=== PATIENT | female | born 1955 | race Caucasian/White ===

== ENCOUNTER → 2017-08-11 | Day surgery (SDC) | payer OTHER ==
[~2017-08-11] MED LIST: FENTANYL CITRATE/PF 100MCG/2 ML INJ ONE; LEVOTHYROXINE88 MCG PO; LIDOCAINE HCL 2% LOCAL INJ 5 ML SDV VIAL INJ ONE; MELOXICAM7.5 MG PO; MIDAZOLAM HCL 2 MG/2 ML VIAL ONE; PANTOPRAZOLE SO40 MG PO; PAROXETINE HCL20 MG PO; PROPOFOL IV EMULSION 10 MG/ML 50 ML VIAL ONE
--- NOTE | 2017-08-11 17:20 | Operative Report ---
DATE OF PROCEDURE: August 11, 2017 REFERRING PHYSICIAN: Dr. Gerardo Pugh. PROCEDURE PERFORMED: Esophagogastroduodenoscopy with biopsies. INDICATIONS FOR ESOPHAGOGASTRODUODENOSCOPY: Abdominal distention, worse postprandially. MEDICATION: Patient was done under MAC. Please see anesthesiologist's note. PROCEDURE: With the patient in the left lateral decubitus position, the flexible fiberoptic Olympus gastroscope was introduced into the esophagus under direct visualization without any difficulty. There was some patchy erythema noted in the distal esophagus. A minute tongue of velvety red mucosa was noted to extend proximally from the GE junction, and that was biopsied to rule out Yancey's. The scope was then advanced with ease into the stomach, traversing a small hiatal hernia. Mucosa overlying the antrum and the body revealed some patchy erythema and low-grade edema, and biopsies were obtained and sent to stain for H. pylori. The pylorus was of normal contour and shape, was intubated with ease, and the scope was advanced all the way to the 2nd portion of the duodenum. Biopsies were obtained from the proximal 2nd portion to rule out sprue considering patient's history of diarrhea. The mucosa overlying the duodenal bulb appeared to be within normal limits. The scope was then withdrawn back into the stomach and retroflexed, and the mucosa overlying the fundus appeared to be within normal limits. A somewhat loose Senia fundoplication was noted. The scope was then straightened out. The stomach was decompressed. The scope was subsequently withdrawn. Patient tolerated the procedure well. IMPRESSION: 1. Mild distal esophagitis. 2. Rule out Yancey's esophagus. 3. Small hiatal hernia. 4. Status post Senia fundoplication. 5. Gastritis biopsied. Biopsies sent to stain for H. pylori. 6. Rule out sprue. PLAN: Follow up histology. Initiate Protonix 40 mg 1 p.o. q.a.m. a.c. and Carafate 1 gram p.o. a.c. t.i.d. nightly. Job#: [id number] EV cc:GERARDO PUGH, DO
== END | disposition home or self-care (01) ==
LOC: OR 12:27
PROVIDERS: ATTEND Internal Medicine Gastroenterology
DX: K29.70 Gastritis, unspecified, without bleeding (principal); K20.9 Esophagitis, unspecified; K44.9 Diaphragmatic hernia without obstruction or gangrene; K21.9 Gastro-esophageal reflux disease without esophagitis; Z98.890 Other specified postprocedural states; R19.7 Diarrhea, unspecified; R05 Cough; E03.9 Hypothyroidism, unspecified; F32.9 Major depressive disorder, single episode, unspecified; Z88.0 Allergy status to penicillin; F17.210 Nicotine dependence, cigarettes, uncomplicated; Z01.810 Encounter for preprocedural cardiovascular examination; Z68.27 Body mass index [BMI] 27.0-27.9, adult
CPT/HCPCS: 43239; 93005; J2001; J2250

== ENCOUNTER 2018-06-13 12:09 | Emergency (ER) | payer OTHER ==
[~2018-06-13] VITALS: Ht 167.6 cm; Wt 71.7 kg
[~2018-06-13 12:09] MED LIST changes: -FENTANYL CITRATE/PF 100MCG/2 ML INJ ONE; -LIDOCAINE HCL 2% LOCAL INJ 5 ML SDV VIAL INJ ONE; -MIDAZOLAM HCL 2 MG/2 ML VIAL ONE; -PROPOFOL IV EMULSION 10 MG/ML 50 ML VIAL ONE
[2018-06-13 12:57] LABS: BASOPHILS # (AUTO) 0.1 (0.0-0.1); BASOPHILS % 0.7 % (0.0-1.0); EOSINOPHILS # (AUTO) 0.1 (0.0-0.4); EOSINOPHILS % 1.6 % (0.0-6.0); HEMATOCRIT 41.4 % (34.2-44.1); HEMOGLOBIN 13.4 g/dL (12.0-16.0); LYMPHOCYTES # (AUTO) 2.2 (1.0-3.2); LYMPHOCYTES % 29.2 % (18.0-39.1); MEAN CORPUSCULAR HEMOGLOBIN 28.6 pg (28-32); MEAN CORPUSCULAR HGB CONC 32.4 g/dL (31-35); MEAN CORPUSCULAR VOLUME 88.5 fL (81-99); MONOCYTES # (AUTO) 0.6 (0.2-0.8); MONOCYTES % 7.8 % (4.4-11.3); NEUTROPHILS # (AUTO) 4.5 (2.1-6.9); NEUTROPHILS % 60.4 % (38.7-80.0); PLATELET COUNT 340 x10e3/uL (140-360); RED BLOOD COUNT 4.68 x10e6/uL (3.6-5.1); RED CELL DISTRIBUTION WIDTH 13.7 % (11.7-14.4)
[2018-06-13 13:07] LABS: INR 0.82; PARTIAL THROMBOPLASTIN TIME 25.9 seconds (23.8-35.5); PROTHROMBIN TIME 11.8 seconds (11.9-14.5)
[2018-06-13 13:09] LABS: BILIRUBIN,URINE NEGATIVE (NEGATIVE); CLARITY,URINE CLEAR (CLEAR); COLOR,URINE YELLOW (YELLOW); KETONES,URINE NEGATIVE (NEGATIVE); LEUKOCYTE ESTERASE ,URINE NEGATIVE (NEGATIVE); NITRITE,URINE NEGATIVE (NEGATIVE); PROTEIN,URINE DIPSTICK NEGATIVE (NEGATIVE); URINE UROBILINOGEN 0.2 mg/dL (0.2 - 1)
[2018-06-13 13:17] LABS: BACTERIA,URINE RARE /HPF; EPITHELIAL CELLS,URINE RARE /LPF
[2018-06-13 13:17] LABS: ALBUMIN 3.4 g/dL (3.5-5.0); ALBUMIN/GLOBULIN RATIO 0.9 (0.8-2.0); ANION GAP 12.2 mmol/L (8-16); CALCIUM 9.2 mg/dL (8.4-10.2); CREATININE, SERUM 0.94 mg/dL (0.57-1.11); MAGNESIUM 2.1 MG/DL (1.3-2.1); POTASSIUM 4.2 mmol/L (3.5-5.1)
--- NOTE | 2018-06-13 13:17 | Diagnostic Imaging Report ---
CT BRAIN WO HISTORY: Headache, dizziness COMPARISON: None. Technique: Noncontrast axial scans were obtained from skull base to the vertex. Coronal and sagittal reconstructions obtained from the axial data. One or more of the following dose reduction techniques were used: Automated exposure control, adjustment of the mA and/or kV according to patient size, and/or utilization of iterative reconstruction technique. DISCUSSION: Scalp/Skull: Plate-screw construct at the right zygomaticomaxillary junction. Otherwise, unremarkable. Brain sulci: Mildly prominent. Ventricles: Compensatory dilatation. Extra-axial spaces: No masses or fluid collections. Carotid siphon calcifications are present. Parenchyma: Mild bilateral deep white matter hypodensity is likely chronic microvascular ischemic change. Otherwise, no masses, hemorrhage, or large vascular territory acute infarct. Dural sinuses: No abnormal densities. Sellar/Suprasellar region: Intact. Skull base: Intact. Incidental findings: None. IMPRESSION: 1. No acute intracranial abnormalities. 2. Mild supratentorial chronic microvascular ischemic change. Mild generalized cerebral volume loss. Signed by: Dr. Brian Herbert M.D. on 06/13/2018 1:14 PM
[2018-06-13 13:24] LABS: CREATINE KINASE MB 2.7 ng/mL (0-5.0)
--- NOTE | 2018-06-13 13:26 | Diagnostic Imaging Report ---
EXAMINATION: CHEST SINGLE (PORTABLE) INDICATION: Dizziness with back pain. COMPARISON: None FINDINGS: TUBES and LINES: None. LUNGS: Moderate inflation of the lungs. Multiple leads overlying the right hemithorax partially obscures evaluation. There are patchy opacities at the right lung base. No evidence of pulmonary edema. PLEURA: No pleural effusion or pneumothorax. HEART AND MEDIASTINUM: The cardiomediastinal silhouette is unremarkable. BONES AND SOFT TISSUES: No acute osseous abnormality. UPPER ABDOMEN: No free air under the diaphragm. IMPRESSION: Patchy opacities at the right lung base, likely atelectasis. Pneumonia is possible in the appropriate clinical setting. Signed by: Dr. Brody Amin MD on 06/13/2018 1:23 PM
[2018-06-13 14:57] VITALS: BP 114/78
== END 2018-06-13 15:18 | disposition home or self-care (01) ==
LOC: ER 12:13
DX: G44.89 Other headache syndrome (principal); G43.909 Migraine, unspecified, not intractable, without status migrainosus; R42 Dizziness and giddiness; E78.5 Hyperlipidemia, unspecified; E07.9 Disorder of thyroid, unspecified; F32.9 Major depressive disorder, single episode, unspecified
CPT/HCPCS: 36415; 70450; 71045; 80053; 81001; 82550; 82553; 83690; 83735; 83880; 84484; 85025; 85610; 85730; 93005; 99284

== ENCOUNTER → 2019-07-08 | Outpatient (CLI) | payer MEDICARE ==
[~2019-07-08] MED LIST changes: +GADOBENATE DIMEGLUMINE 1 ML IV ONE; +SODIUM CHLORIDE 0.9% 50ML 50 ML ONE
[2019-07-08 09:42] LABS: CREATININE, SERUM 0.97 mg/dL (0.57-1.11)
--- NOTE | 2019-07-08 11:46 | Diagnostic Imaging Report ---
MRI abdomen without and with contrast History: Neoplasm of uncertain significance Comparison: None Technique: Multiplanar and multisequence MRI images of the abdomen were obtained without and subsequently following the administration of intravenous gadolinium. Findings: A hypoenhancing solid mass is noted involving the superior pole the right kidney. This demonstrates decreased T1 and T2 signal intensity and measures 3.0 x 2.8 x 2.8 cm in size. A subcentimeter cystic component is seen within the posterior aspect of the lesion. The right renal artery and vein are patent. A simple appearing cyst is noted also in the superior pole of the right kidney more anteriorly measuring 16 mm in size. No hydronephrosis is appreciated. The left kidney is unremarkable. No lymphadenopathy is seen within the abdomen. Visualized bowel loops appear normal in caliber. No apparent bowel wall thickening. Unremarkable appearance of the pancreas. Specifically, no pancreatic ductal dilation or mass is appreciated. Scattered subcentimeter nonenhancing lesions throughout the spleen, almost certainly benign. The spleen appears normal in size. Unremarkable appearance of the liver. The gallbladder is not visualized. The heart is normal in size. No pericardial effusion is identified. Impression: Hypoenhancing solid mass at the superior pole of the right kidney, representing neoplasm until proven otherwise. Suggest tissue diagnosis. Signed by: Trenton Carty MD on 07/08/2019 11:42 AM
== END ==
LOC: MRI 08:59
PROVIDERS: ATTEND Urology
DX: D41.00 Neoplasm of uncertain behavior of unspecified kidney (principal)
CPT/HCPCS: 36415; 74183; 82565; 84520; A9577

== ENCOUNTER → 2019-08-06 | Outpatient (CLI) | payer MEDICARE ==
[~2019-08-06] MED LIST changes: +FENTANYL CITRATE/PF 100MCG/2 ML INJ ONE; -GADOBENATE DIMEGLUMINE 1 ML IV ONE; +LIDOCAINE HCL 1% LOCAL INJ 20 ML VIAL ONE; +MIDAZOLAM HCL 2 MG/2 ML VIAL ONE; -SODIUM CHLORIDE 0.9% 50ML 50 ML ONE
[2019-08-06 09:01] LABS: HEMOGLOBIN 13.3 g/dL (12.0-16.0)
[2019-08-06 09:13] LABS: INR 0.88; PARTIAL THROMBOPLASTIN TIME 26.9 seconds (23.8-35.5); PROTHROMBIN TIME 12.4 seconds (11.9-14.5)
--- NOTE | 2019-08-07 13:53 | Diagnostic Imaging Report ---
CT-guided right renal mass biopsy. History: Right renal mass. Modality: CT RADIATION DOSE: Total DLP: 1751.83 mGy*cm Dose modulation, iterative reconstruction, and/or weight based adjustment of the mA/kV was utilized to reduce the radiation dose to as low as reasonably achievable. Sedation: Versed 0.5 mg and fentanyl 25 mcg was given intravenously for conscious sedation. Vital signs were monitored throughout the procedure by a nurse, and remained stable. Physician intra-service time was 30 minutes. Approach: Right posterior, percutaneous Estimated blood loss: < 5 cc. Specimen: 2 x 22-gauge FNA samples, 5 x 20-gauge core biopsy samples. centrifugal drier operator: Héctor Doan MD. Technique: Informed written consent was obtained. Discussion of risks, benefits, and alternatives were made with the patient. The patient expressed understanding and agreed to proceed. A universal timeout was performed prior to starting the procedure. All elements maximal sterile barrier technique was utilized for this procedure, including utilization of sterile scrub solution for skin prep, a large sterile sheet to cover the areas of the patient that were not prepped, and hand hygiene, mask, head covering, and sterile gown for performing radiologist and scrub technologist. The patient was placed prone within the CT gantry. Scattered images obtained demonstrate exophytic mass identified arising off the superior pole of the right kidney. 1% lidocaine was used for local anesthesia. Using CT guidance, a 19-gauge introducer needle was advanced into the right renal lesion from a posterior approach. 2 fine-needle aspiration samples were obtained using 22-gauge Chiba needles. Adequacy was confirmed by the cytopathologist. At the request of the pathologist, additional core biopsy samples were obtained using a 20-gauge core biopsy needle coaxially. The introducer needle was removed and tract embolized using Gelfoam slurry. Post biopsy images demonstrate no evidence for hematoma, pneumothorax, or other immediate consultation. The patient tolerated procedure well. Impression: Successful CT-guided right renal mass biopsy as detailed above. Signed by: Dr. Héctor Doan MD on 08/06/2019 3:08 PM
== END ==
LOC: US 08:30
PROVIDERS: ATTEND Urology
DX: D41.00 Neoplasm of uncertain behavior of unspecified kidney (principal)
CPT/HCPCS: 10009; 36415; 50200; 85014; 85049; 85610; 85730; 87635; 88112; 88172; 88173; 88305; J2001; J2250; J3010; 99152; 99153

== ENCOUNTER 2020-02-05 12:00 | Emergency (ER) | payer MEDICARE ==
[~2020-02-05] VITALS: Ht 167.6 cm; Wt 71.7 kg
[~2020-02-05 12:00] MED LIST changes: -FENTANYL CITRATE/PF 100MCG/2 ML INJ ONE; -LIDOCAINE HCL 1% LOCAL INJ 20 ML VIAL ONE; -MIDAZOLAM HCL 2 MG/2 ML VIAL ONE
--- NOTE | 2020-02-05 12:37 | Emergency Department Note ---
History of Present Illnes History of Present Illness Chief Complaint: Hypertension History of Present Illness This is a 64 year old female Chief Complaint Comment PATIENT IN FROM WORK WITH COMPLAINTS OF HIGH BLOOD PRESSURE; STATES WAS NOT FEELING WELL AT WORK AND WHEN THEY TOOK HER BLOOD PRESSURE IT WAS 172/72. PATIENT BLOOD PRESSURE 132/83 IN TRIAGE, RESP EVEN AND NONLABORED, APPEARS IN NO DISTRESS, DENIES PAIN AT THIS TIME. Historian: Patient, Family Member Arrival Mode: Car Rope Walker Required: No Onset (how long ago): unknown Location: Blood Quality: Pressure Radiation: Reports non-radiation Severity: mild Onset quality: unable to specify Duration (how long): day(s) (1) Timing of current episode: unable to specify Progression: partially resolved Chronicity: new Context: Denies recent illness, Denies recent surgery Relieving factors: none Exacerbating factors: none Associated symptoms: Reports denies other symptoms Treatments prior to arrival: none Past Medical/Family History Physician Review I have reviewed the patient's past medical and family history. Any updates have been documented here. Past Medical History Recent Fever: No Clinical Suspicion of Infectio: No New/Unexplained Change in Ment: No Past Medical History: Hypothyroidism, Depression, GERD, Hyperlipedemia, Osteoarthritis Other Medical History: high cholesterol HERNIA ARTHRITIS GERD DEPRESSION Past Surgical History: Cholecysctectomy, Hysterectomy, Hernia Repair Other Surgery: HERNIA REPAIR Social History Smoking Cessation: Never Smoker Counseling Performed: No Alcohol Use: None Any Illegal Drug Use: No Physically hurt or threatened: No Other Last Tetanus: unk Any Pre-Existing Lines (PICC,: No Review of Systems Review of Systems Constitutional: Reports as per HPI EENTM: Reports no symptoms Cardiovascular: Reports no symptoms Respiratory: Reports no symptoms Gastrointestinal: Reports no symptoms Genitourinary: Reports no symptoms Musculoskeletal: Reports no symptoms Integumentary: Reports no symptoms Neurological: Reports no symptoms Psychological: Reports no symptoms Endocrine: Reports no symptoms Hematological/Lymphatic: Reports no symptoms Physical Exam Related Data Allergies: Coded Allergies: Penicillins (Verified Allergy, Unknown, 02/05/20) Triage Vital Signs Vital Signs Date Time Temp Pulse Resp B/P (MAP) Pulse Ox O2 Delivery O2 Flow Rate FiO2 02/05/20 12:14 96.8 78 20 132/83 98 Room Air Vital signs reviewed: Yes Physical Exam CONSTITUTIONAL Constitutional: Present well-developed, Present well-nourished HENT HENT: Present normocephalic, Present atraumatic, Present oropharynx clear/moist, Present nose normal HENT L/R: Present left ext ear normal, Present right ext ear normal EYES Eyes: Reports PERRL, Reports conjunctivae normal NECK Neck: Present ROM normal PULMONARY Pulmonary: Present effort normal, Present breath sounds normal CARDIOVASCULAR Cardiovascular: Present regular rhythm, Present heart sounds normal, Present capillary refill normal, Present normal rate GASTROINTESTINAL Abdominal: Present soft, Present nontender, Present bowel sounds normal GENITOURINARY Genitourinary: Present exam deferred SKIN Skin: Present warm, Present dry MUSCULOSKELETAL Musculoskeletal: Present ROM normal NEUROLOGICAL Neurological: Present alert, Present oriented x 3, Present no gross motor or sensory deficits PSYCHOLOGICAL Psychological: Present mood/affect normal, Present judgement normal Assessment & Plan Medical Decision Making MDM 64 y.o F presents for HTN. Generally doesnt feel well today but is otherwise asymptomatic. Takes BP with a wrist cuff. Labs benign. She will f/u w/ PCP. BP within acceptable limits here in ED 132 systolic. Doubt emergent process at this time. I discussed results patient as well as expected disease time course and management. They will follow up with their primary care provider or return to the emergency department for new or worsening symptoms. Patient's appropriate for discharge. Reassessment Reassessment time: 14:10 Reassessment Well appearing, NAD Assessment & Plan Final Impression: (1) Blood pressure check Depart Disposition: HOME, SELF-CARE Last Vital Signs Date Time Temp Pulse Resp B/P (MAP) Pulse Ox O2 Delivery O2 Flow Rate FiO2 02/05/20 12:14 96.8 78 20 132/83 98 Room Air Home Meds Reported Medications Paroxetine Hcl (PAROXETINE HCL) 20 Mg Tablet, 20 MG PO DAILY, #30 TAB 09/23/15 Levothyroxine Sodium (LEVOTHYROXINE SODIUM) 88 Mcg Tablet, 88 MCG PO DAILY, TAB 11/21/13 JAIRON ZULETA MD Feb 05, 2020 12:37
--- OUTSIDE RECORDS SUMMARY | 2020-02-05 12:47 | XMS REPORT | Continuity of Care Document ---
Author Author [facility] t Organization [facility] Address [address] [place] [address] Phone Unavailable Care Team Providers Care Gasket Inspector Name Role Phone GERARDO PUGH DO PCP Shay RN, Roselia Attphys Unavailable Kian Tapia MD Attphys Sudarshan Lees DO Attphys Kian Ngo APRN Attphys JUAN ALBERTO [place] Attphys Unavailable ROCHELLE DSOUZA Attphys Unavailable Rekha FELDMAN Attphys Unavailable DEE DEE TAPIA Admphys Unavailable Payers Payer Name Policy Type Policy Number Effective Date Expiration Date Edgard logan TEXANPLUSTEXANPLUS [id number] 2019-PresentO [id number] 2019 00:00:00 Keegan Jerez r o [id number] 2015 00:00:00 GOLDIE [facility] Problems Condition Name Condition Details Condition Category Status Onset Date Resolution Date Last Treatment Date Treating Clinician Comments Source Multiple nodules of lung Multiple Nodules of Lung Problem Acti ve 2019-11-22 00:00:00 [facility] Partial nephrectomy Partial Nephrectomy Problem Active 2019-11-22 00:00 :00 [facility] Malignant tumor of kidney Malignant Tumor of Kidney Problem Ac tive 2019-10-22 00:00:00 [facility] Right renal mass Right renal mass Disease Active 2019-10-11 00:00:00 [facility] Mixed hyperlipidemia Mixed Hyperlipidemia Problem [facility] Nicotine Dependence Problem Active 2019-04-12 00:00 :00 [facility] Prediabetes Prediabetes Problem Active 2019-04-12 00:00:00 [facility] Hypothyroidism Hypothyroidism Problem Active 2019-02-12 00:00:00 [facility] Anxiety Anxiety Problem Active 2019-02-12 00:00:00 [facility] Allergies, Adverse Reactions, Alerts Allergy Name Allergy Type Status Severity Reaction(s) Onset Date Inacti ve Date Treating Clinician Comments Source Penicillins Propensity to adverse reactions to drug Active GI Intolerance 2019-10-08 00:00:00 Keegan muniz Penicillins DA Active [facility] 2019-01-28 00:00:00 [facility] Penicillin Allergy to Substance Active 2016-05-27 00:00:00 [facility] PENICILLINS Allergy to substance Active [facility] Family History Family Member Diagnosis Comments Start Date Stop Date Source Maternal grandmother Breast cancer [facility] Maternal grandmother Cancer [facility] Natural mother Heart disease Keegan Jerez Other Cancer Keegan Method ist Other Colon cancer Keegan muniz Social History Social Habit Start Date Stop Date Quantity Comments Source History of tobacco use Cigarette Smoker Keegan Jerez Sex Assigned At Kalyn Jerez Cigarettes smoked current (pack per day) - Reported 00:00:00 2019-10-14 00:00:00 Keegan Jerez Cigarette pack-years 2019-10-14 00:00:00 2019-10-14 00:00:00 Keegan Jerez Tobacco use and exposure 2019-10-14 00:00:00 2019-10-14 00:00:00 Ama dueñas used Keegan Jerez Alcohol intake 2019-10-14 00:00:00 2019-10-14 00:00:00 Current drinker of alcohol (finding) Keegan Jerez Alcohol Comment 2019-10-08 00:00:00 2019-10-08 00:00:00 rarely Keegan Jerez Smoking Status Start Date Stop Date Source Heavy Tobacco Smoker [facility] Current every day smoker 2019-10-14 00:00:00 Kalyn Jerez Medications Ordered Medication Name Filled Medication Name Start Date Stop Da te Current Medication? Ordering Clinician Indication Dosage Frequency Signature (SIG) Comments Components Source rosuvastatin (CRESTOR) 10 mg tablet 2019-10-14 10:02:01 Yes 10mg QD Take 10 mg by mouth nightly. Keegan Blanton t levothyroxine (SYNTHROID) 75 mcg tablet 2019-10-14 10:02:01 Yes 75ug QD Take 75 mcg by mouth daily. Keegan Buchanan odselene PARoxetine (PAXIL) 20 MG tablet 2019-10-14 10:02:01 Yes 20mg QD Take 20 mg by mouth every morning. Keegan Looney dist levothyroxine (Synthroid) 88 mcg tablet 2019-10-14 10:02:01 Yes Daily Keegan Jerez rosuvastatin (CRESTOR) 10 mg tablet 2019-10-14 10:02:01 Yes rosuvastatin 10 mg tablet Keegan Mora ist docusate sodium (Colace) 100 MG capsule 00:00:00 2019-11-13 23:59:00 No 100mg Q.5D Take 1 capsule (100 mg total) by mouth 2 (two) times a day for 30 days. Keegan Jerez acetaminophen-codeine (TYLENOL WITH CODEINE #3) 300-30 mg pe r tablet 2019-10-14 00:00:00 2019-10-24 23:59:00 No acute pain 1{tbl} Q6H Take 1-2 tablets by mouth every 6 (six) hours as needed for moderate pain for up to 10 days .acute pain. Keegan Jerez diazePAM (VALIUM) 2 MG tablet 2017-12-05 00:00:00 Yes 1 po tid prn dizziness Keegan Jerez Levothyroxine Sodium 88 Mcg Tablet Levothyroxine Sodium 88 Mcg Tablet Yes 88 Daily [facility] Paroxetine Hcl 20 Mg Tablet Paroxetine Hcl 20 Mg Tablet Yes 20 Daily [facility] levothyroxine 75 mcg tablet Take 75 micrograms every d ay by oral route. levothyroxine 75 mcg tablet Take 75 micrograms every day by oral route. No 75microgram(s) Q1D levothyroxine 75 mcg tablet Take 75 micrograms every day by oral route. [facility] ice paroxetine 20 mg tablet Take 20 mg every day by oral r oute. paroxetine 20 mg tablet Take 20 mg every day by oral route. No 20mg Q1D paroxetine 20 mg tablet Take 20 mg every day by oral route. [facility] rosuvastatin 10 mg tablet Take 1 tablet every day by o ral route. rosuvastatin 10 mg tablet Take 1 tablet every day by oral route. No rosuvastatin 10 mg tablet Take 1 tablet every day by oral route. [facility] Meloxicam 7.5 Mg Tablet, 15 Oral Meloxicam 7.5 Mg Tablet, 15 O ral 2017-08-09 00:00:00 No 15 Daily [facility] Pantoprazole Sodium (Protonix) 40 Mg Tablet.dr, 40 Mg Oral Pantoprazole Sodium (Protonix) 40 Mg Tablet.dr, 40 Mg Oral 2017-08-09 00:00:00 No 40 Twice A Day [facility] Pantoprazole Sodium (Protonix) 40 Mg Tablet.dr, 40 Mg Oral Pantoprazole Sodium (Protonix) 40 Mg Tablet.dr, 40 Mg Oral 2015-04-09 00:00:00 No 40 Daily [facility] Paroxetine Hcl 20 Mg Tablet, 20 Mg Oral Paroxetine Hcl 20 Mg Tablet, 20 Mg Oral 2015-04-09 00:00:00 No 20 Daily [facility] Vital Signs Vital Name Observation Time Observation Value Comments Source Height 2019-11-22 00:00:00 66 [in_i] [facility] Height 2019-10-22 00:00:00 66 [in_i] [facility] BP Diastolic 2019-05-10 00:00:00 68 mm[Hg] [facility] Height 2019-05-10 00:00:00 66 [in_i] [facility] BMI (Body Mass Index) 2019-05-10 00:00:00 26.5 kg/m2 [facility] BP Systolic 2019-05-10 00:00:00 103 mm[Hg] [facility] Body Weight 2019-05-10 00:00:00 164 [lb_av] [facility] BP Diastolic 2019-05-01 00:00:00 64 mm[Hg] [facility] Height 2019-05-01 00:00:00 66 [in_i] [facility] BMI (Body Mass Index) 2019-05-01 00:00:00 26.3 kg/m2 [facility] BP Systolic 2019-05-01 00:00:00 100 mm[Hg] [facility] Body Weight 2019-05-01 00:00:00 163 [lb_av] [facility] BP Diastolic 2019-04-12 00:00:00 56 mm[Hg] [facility] Height 2019-04-12 00:00:00 66 [in_i] [facility] BMI (Body Mass Index) 2019-04-12 00:00:00 26.3 kg/m2 [facility] BP Systolic 2019-04-12 00:00:00 89 mm[Hg] [facility] Body Weight 2019-04-12 00:00:00 163 [lb_av] [facility] BP Diastolic 2019-02-19 00:00:00 76 mm[Hg] [facility] Height 2019-02-19 00:00:00 66 [in_i] [facility] BMI (Body Mass Index) 2019-02-19 00:00:00 27.3 kg/m2 [facility] BP Systolic 2019-02-19 00:00:00 119 mm[Hg] [facility] Body Weight 2019-02-19 00:00:00 169.2 [lb_av] [facility] Systolic blood pressure 2019-10-14 07:44:00 127 mm[Hg] [facility] Diastolic blood pressure 2019-10-14 07:44:00 65 mm[Hg] [facility] Heart rate 2019-10-14 07:44:00 72 /min [facility] Body temperature 2019-10-14 07:44:00 36.94 Joyce [place] [facility] Respiratory rate 2019-10-14 07:44:00 18 /min [place] [facility] Oxygen saturation in Arterial blood by Pulse oximetry 10-13 07:44:00 95 /min [facility]egan [facility] Body height 2019-10-11 11:46:00 167.6 cm [facility] Body weight 2019-10-11 11:46:00 75.297 kg [facility] BMI 2019-10-11 11:46:00 26.79 kg/m2 [facility] Procedures Procedure Date / Time Performed Performing Clinician Sourc e HEMOGLOBIN 2019-10-14 04:00:00 Tra Myers [facility] HEMATOCRIT 2019-10-14 04:00:00 Tra Myers [facility] BASIC METABOLIC PANEL 2019-10-14 04:00:00 Tra Myers ESTIMATED GFR 2019-10-14 04:00:00 Dee Dee Tapia ethodi HEMOGLOBIN & HEMATOCRIT 2019-10-13 12:00:00 Gwendolyn Beavers [facility] HEMOGLOBIN 2019-10-13 05:30:00 Tra Myers [facility] HEMATOCRIT 2019-10-13 05:30:00 Tra Myers [facility] BASIC METABOLIC PANEL 2019-10-13 04:00:00 Tra Myers ESTIMATED GFR 2019-10-13 04:00:00 Dee Dee Tapia ethodist HEMATOCRIT 2019-10-12 04:20:00 Tra Myers on [employer] CBC HEMOGRAM 2019-10-12 04:20:00 Dee Dee Tapia ethodist BASIC METABOLIC PANEL 2019-10-12 04:00:00 Tra Myers ESTIMATED GFR 2019-10-12 04:00:00 Dee Dee Tapia ethodist HEMATOCRIT 2019-10-11 17:31:00 Tra Myers [facility] HEMOGLOBIN 2019-10-11 17:31:00 Tra Myers [facility] BASIC METABOLIC PANEL 2019-10-11 17:31:00 Tra Myers ESTIMATED GFR 2019-10-11 17:31:00 Dee Dee Tapiaodi SURGICAL PATHOLOGY REQUEST 2019-10-11 16:15:00 Dee Dee Tapia ARTERIAL BLOOD GAS, CORRECTED 2019-10-11 13:45:00 Jihan Tapia POTASSIUM, SYRINGE 2019-10-11 13:45:00 Dee Dee Tapia n [facility] SODIUM LEVEL, SYRINGE 2019-10-11 13:45:00 Dee Dee Tapia [employer] HEMOGLOBIN, SYRINGE 2019-10-11 13:45:00 Dee Dee Tapia on [employer] IONIZED CALCIUM, ARTERIAL 2019-10-11 13:45:00 Dee Dee Tapia GLUCOSE LEVEL, SYRINGE 2019-10-11 13:45:00 Dee Dee Tapia [place] AN ELECTIVE ENDOTRACHEAL AIRWAY 2019-10-11 13:41:04 Jessee Gutierrez Keegan Jerez NEPHRECTOMY, PARTIAL, LAPAROSCOPIC, ROBOT-ASSISTED 2019-09-25 7 13:00:00 Dee Dee Tapia Procedure on Kidney 2019-10-11 00:00:00 [facility] HC COMPLETE BLD COUNT W/AUTO DIFF 2019-10-08 15:49:00 Carmen Donald COMPREHENSIVE METABOLIC PANEL 2019-10-08 15:49:00 Don Donald ESTIMATED GFR 2019-10-08 15:49:00 Carmen Donald n [facility] URINALYSIS SCREEN AND MICROSCOPY, WITH REFLEX TO CULTURE 202 15:21:00 Dee Dee Tapia TYPE AND SCREEN 2019-10-08 15:21:00 Dee Dee Tapia ethodist PREPARE RBC 2019-10-08 15:21:00 Dee Dee Tapia COVID-19 QUALITATIVE PCR 2019-10-08 15:18:00 Dee Dee Tapia URINE CULTURE 2019-10-08 15:15:00 Dee Dee Tapia ethodi LDCT, chest, for lung cancer screening 2019-05-01 00:00:00 [facility] electrocardiogram 2019-05-01 00:00:00 [facility] MAMMO, screening, digital, bilateral 2019-05-01 00:00:00 [facility] DEXA 2019-05-01 00:00:00 [facility] MAMMO, screening, digital, bilateral 2019-04-12 00:00:00 [facility] bone density 2019-04-12 00:00:00 [facility] electrocardiogram 2019-02-19 00:00:00 [facility] Computed tomography of brain without radiopaque contrast 201 11-28-19 00:00:00 WILBERTO MEZA [facility] Colonoscopy 2016-03-27 00:00:00 [facility] Colonoscopy 2014-03-27 00:00:00 [facility] Cholecystectomy (Gall Bladder Removal) 2013-03-27 00:00:00 [facility] Colonoscopy 2013-03-27 00:00:00 [facility] Hernia Repair 2013-03-27 00:00:00 [facility] Hysterectomy (Partial) 1984-03-27 00:00:00 [facility] Plan of Care Planned Activity Planned Date Details Comments Source Diagnostic Test Pending 2019-11-22 00:00:00 noninvasive colo rectal cancer DNA + occult blood screening, stool [code = noninvasive colorectal cancer DNA + occult blood screening, stool] [facility] Future Scheduled Test 2019-10-26 00:00:00 INFLUENZA VACCINE [code = INFLUENZA VACCINE] [facility] Scheduled Test 2018 00:00:00 65+ PNEUMOCOCCAL V ACCINE (1 of 1 - PPSV23) [code = 65+ PNEUMOCOCCAL VACCINE (1 of 1 - PPSV23)] [facility] Scheduled Test 2003-12-05 00:00:00 BREAST CANCER SCRE ENING [code = BREAST CANCER SCREENING] [facility] Scheduled Test 2003-12-05 00:00:00 COLONOSCOPY SCREEN ING [code = COLONOSCOPY SCREENING] [facility] Scheduled Test 2003-12-05 00:00:00 SHINGLES VACCINES (#1) [code = SHINGLES VACCINES (#1)] [facility] Appointment 2020-02-22 00:00:00 Dariela Bai, [address]; [address], [place] [address] [facility] radha Instructions [facility] Encounters Start Date/Time End Date/Time Encounter Type Admission Type Attendi [facility] Facility Care Department Encounter ID Source 2019-11-22 00:00:00 2019-11-22 00:00:00 Dariela Bai AIR POLLUTION ENGINEER : [address], [address], [place] [address], Ph. [facility] [place] - [facility] - VM_[facility] (WAG) [id number] [facility] 2019-10-22 00:00:00 2019-10-22 00:00:00 Dariela Bai AIR POLLUTION ENGINEER : [address], [address], [place] [address], Ph. [facility] [place] - [facility] - [facility] (WAG) [id number] [facility] 2019-10-11 00:00:00 2019-10-14 00:00:00 Inpatient JIHAN TAPIA [facility] 021 [id number] [facility] 2019-10-08 00:00:00 2019-10-08 00:00:00 Outpatient DANIELA TAPIA [facility] [id number] [facility] 2019-05-10 00:00:00 2019-05-10 00:00:00 Dariela Bai, AIR POLLUTION ENGINEER : [facility] [place] [address], Ph. [facility] Medical - [facility] [id number] [facility] 2019-05-01 00:00:00 2019-05-01 00:00:00 Dariela Bai, AIR POLLUTION ENGINEER : [facility] [place] [address], Ph. [facility] - [facility] [id number] [facility] 2019-04-12 00:00:00 2019-04-12 00:00:00 Mike Young , DO: [address] [place] [phone], Ph. [facility] - [facility] [id number] [facility] 2019-02-19 00:00:00 2019-02-19 00:00:00 Mike Young , DO: [address] [place] [address], Ph. [facility] - [facility] [id number] [facility] 2019-02-12 00:00:00 2019-02-12 00:00:00 Mike Young , DO: [address] [place] [phone], Ph. [facility] - [facility] [id number] [facility] 2018-06-13 12:13:00 2018-06-13 15:18:00 Departed Emergency Room 1 RO [facility] [id number] [facility] Results Test Description Test Time Test Comments Results Result Comments Source Surgical pathology request 2019-10-15 07:39:19 Test Item Case number (test code = [id number]) [id number] Surgical pathology report (test code = 2255) See link below for PDF Lab Report Result status (test code = 3899419) This is Final Report for [id number] [facility] [id number] 05:10:43* Test Item Value Reference Range Interpretation Comments Sodium (test code = 2951-2) 138 135- 148 mEq/L Potassium (test code = 2823-3) 4.1 3.5- 5.0 mEq/L Chloride (test code = 2075-0) 108 98- 112 mEq/L CO2 (test code = 8-9) 21 24- 31 mEq/L L Anion gap (test code = 01570-2) 9@ANIO 7- 15 mEq/L BUN (test code = 3094-0) 7 mg/dL 8-23 L Creatinine (test code = 2160-0) 1.00 mg/dL 0.5-0.9 H Glucose (test code = 2345-7) 96 mg/dL 65-99 Calcium (test code = 84377-6) 8.6 mg/dL 8.8-10.2 L Lab Interpretation (test code = 11472-0) Abnormal [place] Methodist[facility] [id number] 05:10:43* Test Item Value Reference Range Interpretation Comments Estimated GFR (test code = 5488) 59 mL/min/1.73 m2 A Catergory Units InterpretationG1 >=90 Normal or highG2 60-89 Mildly yjwyteheuN8f 45-59 Mildly to moderately yhetereheG6r 30-44 Moderately to severely decreasedG4 15-29 Severely decreasedG5 <15 Kidney failureThe eGFR was calculated using the Chronic Kidney Disease Epidemiology Collaboration (CKD-EPI) equation. Interpretation is based on recommendations of the National Kidney Foundation-Kidney Disease Outcomes Quality Initiative (NKF-KDOQI) published in 2014. Lab Interpretation (test code = 46899-0) Abnormal [place] PvtllomtpHpxruknwnt7768-71-64 04:43:41* Test Item Value Reference Range Interpretation Comments HCT (test code = 4544-3) 28.8 % 37-47 L Lab Interpretation (test code = 38308-0) Abnormal [place] DdgmslegiEfvfdnpwbq0819-02-50 04:43:41* Test Item Value Reference Range Interpretation Comments HGB (test code = 718-7) 9.1 g/dL 12-16 L Lab Interpretation (test code = 62025-5) Abnormal [place] MethodistHemoglobin & laonitcokx2622-67-79 12:24:20* Test Item Value Reference Range Interpretation Comments HGB (test code = 718-7) 10.3 g/dL 12-16 L HCT (test code = 4544-3) 31.8 % 37-47 L Lab Interpretation (test code = 17748-3) Abnormal [place] MorganistCBC [id number] 08:58:32* Test Item Value Reference Range Interpretation Comments WBC (test code = 47885-9) 8.20 4.50- 11.00 k/uL RBC (test code = 28436-8) 3.88 m/uL 4.2-5.5 L HGB (test code = 718-7) 11.3 g/dL 12-16 L HCT (test code = 4544-3) 35.1 % 37-47 L MCV (test code = 787-2) 91.5 fL 82-100 MCH (test code = 785-6) 29.1 pg 27-34 MCHC (test code = 786-4) 31.8 g/dL 31-37 RDW - SD (test code = 15257-2) 44.3 fL 37-55 MPV (test code = 11411-1) 10.1 fL 8.8-13.2 Platelet count (test code = 11638-6) 268 150- 400 k/uL Nucleated RBC (test code = 34857-6) 0.00 /100 WBC SUKHJINDER (test code = SUKHJINDER) CBC ADDED BY FINESSE CHUA/Trent 10/12/2019 0 7:37 [place] Lab Interpretation (test code = 46429-5) Abnormal [place] MethodistPrepare [id number] 16:45:00* Test Item Value Reference Range Interpretation Comments Product name (test code = 25) Apheresis Red Cell AS3 #1 LR Unit number (test code = 6462923) [id number] Product code (test code = 3092) [id number] Dispense status (test code = 24) Returned to not transfused Blood expiration date (test code = 302) [id number] Blood type code (test code = 308) 5100 Blood type (test code = 1314) O POSITIVE Compatibility (test code = 6400) Compatible [place] MethodistArterial blood gas, [id number] 14:02:31* Test Item Value Reference Range Interpretation Comments pH, arterial (test code = 2744-1) 7.38 7.35-7.45 pCO2, arterial (test code = 2019-8) 43 35- 45 mmHg pO2, arterial (test code = 2703-7) 166 80- 90 mmHg H Temperature, Celsius (test code = 8310-5) 35.5 Degrees C O2 saturation, arterial (test code = 2708-6) 99 % 95-100 pH, arterial corrected (test code = 56554-1) 7.40 pCO2, arterial corrected (test code = 61748-4) 40 mmHg pO2, arterial corrected (test code = 22630-8) 158 mmHg Base excess, arterial (test code = 1925-7) 0 -2 - 2 mEq- L Lab Interpretation (test code = 19963-5) Abnormal [facility] MethodistGlucose level, ceedbng7785-80-17 14:02:31* Test Item Value Reference Range Interpretation Comments Glucose, syringe (test code = 2345-7) 97 mg/dL 65-99 [facility] MethodistHemoglobin, lgiufeq2219-25-70 14:02:31* Test Item Value Reference Range Interpretation Comments Hemoglobin, syringe (test code = 718-7) 12.4 g/dL 12-16 Allison MethodistIonized calcium, ichqnncf5214-78-21 14:02:31* Test Item Value Reference Range Interpretation Comments Ionized calcium, arterial (test code = 81993-9) 1.08 mmol/L 1.11-1 .32 L Lab Interpretation (test code = 65807-1) Abnormal [place] MethodistPotassium, wfodsmd8546-07-94 14:02:31* Test Item Value Reference Range Interpretation Comments Potassium, syringe (test code = 2007) 4.0 3.5- 5.0 mEq/L Allison MethodistSodium level, [id number] 14:02:31* Test Item Value Reference Range Interpretation Comments Sodium, syringe (test code = 2947-0) 137 135- 148 mEq/L Keegan MoraKhuqfwadcUozffr7507-41-88 13:41:04YeEula mcconnell CRNA 10/11/2019 1:41 PMAirwayDate/Time: 10/11/2019 1:15 PMPerformed by: Eula Gutierrez CRNAAuthorized by: Sudarshan Lees DO Location: ORUrgency: ElectiveDifficult Airway: No Anesthesiologist: Sudarshan Lees, DOResident/VIDEO TAPE EDITOR/AA: Eula Gutierrez CRNAPerformed by: resident/VIDEO TAPE EDITOR/AAPreoxygenated with 100% O2: Yes C-spine Precautions Maintained Throughout: Yes Mask Ventilation: Easy maskFinal Airway Type: Endotracheal airwayFinal Endotracheal Airway: ETTTechnique Used: Direct laryngoscopyDevices/Methods Used in Placement: Intubating styletInsertion Site: OralBlade Type: MacintoshLaryngoscope Blade/Videolaryngoscope Blade Size: 3ETT Size (mm): 7.0Measured from: GumsETT to Gums (cm): 20Placement Verified by: CO2 detection Laryngoscopic view: Grade I - full view of glottisRapid Sequence Induction (RSI): No Number of Attempts at Approach: 1[facility] MethodistCOVID-19 qualitative [id number] 08:25:53* Test Item Value Reference Range Interpretation Comments Interpretation (test code = 9475385) Negative results do not preclude 2019-nCoV infection and should not be used as the sole basis for treatment or other patient management decisions. Negative results must be combined with clinical observations, patient history, and epidemiological information. COVID-19 qualitative PCR result (test code = 25844-8) Not-Detect ed Not-Detected COVID-19 qualitative PCR (test code = 7070) See link below for P DF Lab Report Keegan MethodistType and [id number] 17:48:00* Test Item Value Reference Range Interpretation Comments ABO grouping (test code = 883-9) O Rh type (test code = 50045-8) POS Antibody screen (gel) (test code = 890-4) NEG [place] MethodistUrine [id number] 17:33:00* Test Item Value Reference Range Interpretation Comments Urine culture (test code = 3547043) SEE COMMENT Bacteriuria screen negative. [place] MethodistUrinalysis screen and microscopy, with reflex to culture 2019-10-08 17:33:00* Test Item Value Reference Range Interpretation Comments Specimen site (test code = 3383896) Clean catch Color, UA (test code = 5778-6) Yellow Appearance, UA (test code = 5767-9) Clear Specific gravity, UA (test code = 5811-5) 1.021 1.001-1.035 pH, UA (test code = 5803-2) 6.0 5.0-8.5 Protein, UA (test code = 07288-1) Negative Negative Glucose, UA (test code = 49600-1) Negative Negative Ketones, UA (test code = 2514-8) Negative Negative Bilirubin, UA (test code = 5770-3) Negative Negative Blood, UA (test code = 5794-3) Negative Negative Nitrite, UA (test code = 5802-4) Negative Negative Urobilinogen, UA (test code = 55385-4) 2.0 <2.0 A Leukocyte esterase, UA (test code = 5799-2) Negative Negative Epithelial cells, UA (test code = 5787-7) <1 /HPF WBC, UA (test code = 5821-4) <1 0- 4 /HPF RBC, UA (test code = 74060-3) 2 0- 5 /HPF Bacteria, UA (test code = 71161-2) Few None seen Yeast, UA (test code = 52668-9) None seen Yeast with pseudohyphae, UA (test code = 42097-7) None seen Lab Interpretation (test code = 91600-7) Abnormal [place] MethodistComprehensive metabolic [id number] 17:09:34* Test Item Value Reference Range Interpretation Comments Sodium (test code = 2951-2) 141 135- 148 mEq/L Potassium (test code = 2823-3) 4.7 3.5- 5.0 mEq/L Chloride (test code = 2075-0) 104 98- 112 mEq/L CO2 (test code = 2027-9) 25 24- 31 mEq/L Anion gap (test code = 16758-0) 12@ANIO 7- 15 mEq/L BUN (test code = 3094-0) 15 mg/dL 8-23 Creatinine (test code = 2160-0) 1.04 mg/dL 0.5-0.9 H Glucose (test code = 2345-7) 83 mg/dL 65-99 Calcium (test code = 50236-8) 9.9 mg/dL 8.8-10.2 Protein (test code = 2885-2) 8.0 g/dL 6.3-8.3 - 4.6- 7.0 g/dL1 week 4.4-7.6 g/dL7 months-1year 5.1-7.3 g/dL1-2 years 5.6-7.5 g/dL>3 years 6.0-8.0 g/vI82-955 6.3-8.3 g/dL Albumin (test code = 1751-7) 3.9 g/dL 3.5-5 A/G ratio (test code = 1759-0) 1.0 0.7-3.8 Alkaline phosphatase (test code = 6768-6) 104 U/L 35-104 AST (test code = 1920-8) 23 U/L 10-35 ALT (test code = 1742-6) 23 U/L 5-50 Total bilirubin (test code = 1975-2) 0.4 mg/dL 0-1.2 Lab Interpretation (test code = 72622-8) Abnormal [facility] with platelet and hbtrnyfjzkrj4255-37-79 17:03:16* Test Item Value Reference Range Interpretation Comments WBC (test code = 45912-0) 7.40 4.50- 11.00 k/uL RBC (test code = 02545-5) 4.42 m/uL 4.2-5.5 HGB (test code = 718-7) 13.0 g/dL 12-16 HCT (test code = 4544-3) 39.8 % 37-47 MCV (test code = 787-2) 90.0 fL 82-100 MCH (test code = 785-6) 29.4 pg 27-34 MCHC (test code = 786-4) 32.7 g/dL 31-37 RDW - SD (test code = 99083-1) 43.5 fL 37-55 MPV (test code = 01368-7) 9.5 fL 8.8-13.2 Platelet count (test code = 76498-6) 310 150- 400 k/uL Nucleated RBC (test code = 06194-5) 0.00 /100 WBC Neutrophils (test code = 75319-0) 58.0 % 39-69 Lymphocytes (test code = 98867-2) 33.4 % 25-45 Monocytes (test code = 04169-8) 6.6 % 0-10 Eosinophils (test code = 91497-1) 1.4 % 0-5 Basophils (test code = 19889-3) 0.5 % 0-1 Immature granulocytes (test code = 89771-4) 0.1 % 0-1 "Immature granulocytes" (promyelocytes, myelocytes, metamyelocytes) [facility] CT GUIDED 1ST [id number] 15:04:00 [place] [address] Patient Name: FRANK MCFADDEN MR #: [id number] : 1955 Age/Sex: 63/F Req #: [id number] Adm Physician: Ordered by: JUAN ALBERTO YORK MD Report #: [id number] Location: Room/Bed: Procedure: [id number] IR/FNA CT GUID ED 1ST LESION Exam Date: 08/06/19 Exam Time: 929 REPORT STATUS: Signed CT-guided ri ght renal mass biopsy. History: Right r enal mass. Modality: CT RADIATI ON DOSE: Total DLP: 1751.83 mGy*cm Dose modulation, iterative brielle nstruction, and/or weight based adjustment of the mA/kV was utilized to reduce the radiation dose to as low as reasonably achievable. Sedation: Versed 0.5 mg and fentanyl 25 mcg was given intravenously for conscious sedation. Vital signs were monitored throughout the procedure by a nurse, and remained stable. Physician intra-service time was 30 minutes. Approach: Right posterior, percutaneous Estimated blood loss: < 5 cc. Specimen: 2 x 22-gauge FNA samples, 5 x 20-gauge core biopsy samples. backup operator: Héctor Doan MD. Technique: Informed written c onsent was obtained. Discussion of risks, benefits, and alternatives were made with the patient. The patient expressed understanding and agreed to proceed. A universal timeout was performed prior to starting the procedure. All eleme nts maximal sterile barrier technique was utilized for this procedure, includi ng utilization of sterile scrub solution for skin prep, a large sterile sheet to cover the areas of the patient that were not prepped, and hand hygiene, mas k, head covering, and sterile gown for performing radiologist and scrub techno logist. The patient was placed prone within the CT gantry. Scattered images obtained demonstrate exophytic mass identified arising off the superior pole of the right kidney. 1% lidocaine was used for local anesthesia. Using CT guid ance, a 19-gauge introducer needle was advanced into the right renal lesion fr om a posterior approach. 2 fine-needle aspiration samples were obtained using 22-gauge Chiba needles. Adequacy was confirmed by the cytopathologist. At the request of the pathologist, additional core biopsy samples were obtained using a 20-gauge core biopsy needle coaxially. The introducer needle was removed and tract embolized using Gelfoam slurry. Post biopsy images demonstrate no ev idence for hematoma, pneumothorax, or other immediate consultation. The patien t tolerated procedure well. Impression: Successful CT-guided right renal mass biopsy as detailed above. Signed by: Dr. Héctor Doan MD on 08/06/2019 3:08 PM Dict ated By: HÉCTOR DOAN MD 1343 Transcribed By: KAEL on 08/07/19 1344 COPY TO: JUAN ALBERTO YORK BIOPSY [id number] 15:04:00 [address] [place], [place] [address] Patient Name: FRANK MCFADDEN MR #: [id number] : 1955 Age/Sex: 63/F [id number] Req #: [id number] Adm Physician: Ordered by: JUAN ALBERTO YORK MD Report #: [id number] Location: Room/Bed: Procedure: IR/BIOPSY VINAY Brink Exam Date: 08/06/19 Exam Time: 0900 REPORT STATUS: Signed CT-guided right renal ma ss biopsy. History: Right renal mass. Modality: CT RADIATION DOSE: Total DLP: 1751.83 mGy*cm Dose modulation, iterative reconstruction, and/or weight based adjustment of the mA/kV was utilized to reduce the radiati on dose to as low as reasonably achievable. Sedation: Versed 0.5 mg and fe ntanyl 25 mcg was given intravenously for conscious sedation. Vital signs wer e monitored throughout the procedure by a nurse, and remained stable. Physicia n intra-service time was 30 minutes. Approach: Right posterior, percutaneous Estimated blood loss: < 5 cc. Specimen: 2 x 22-gauge FNA samples, 5 x 20-gauge core biopsy samples. backup operator: Héctor Doan MD. Technique: Informed written consent was obtained. Discussion of risks, benefits, and alternatives were made with the patient. The patient expressed understanding and agreed to proceed. A universal timeout was performed prior to starting the procedure. All elements maximal sterile barrier technique was utilized for this procedure, including utilization of sterile scrub solution for skin prep, a large sterile sheet to cover the areas of the patient that were not prepped, and hand hygiene, mask, head covering, and sterile gown for performing radiologist and scrub techno logist. The patient was placed prone within the CT gantry. Scattered images obtained demonstrate exophytic mass identified arising off the superior pole of the right kidney. 1% lidocaine was used for local anesthesia. Using CT guid ance, a 19-gauge introducer needle was advanced into the right renal lesion fr om a posterior approach. 2 fine-needle aspiration samples were obtained using 22-gauge Chiba needles. Adequacy was confirmed by the cytopathologist. At the request of the pathologist, additional core biopsy samples were obtained using a 20-gauge core biopsy needle coaxially. The introducer needle was removed and tract embolized using Gelfoam slurry. Post biopsy images demonstrate no ev idence for hematoma, pneumothorax, or other immediate consultation. The patien t tolerated procedure well. Impression: Successful CT-guided right renal mass biopsy as detailed above. Signed by: Dr. Héctor Doan MD on 08/06/2019 3:08 PM Dict ated By: HÉCTOR DOAN MD Transcribed By: KAEL on 08/06/191507 COPY TO: JUAN ALBERTO YORK MRI ABDOMEN [id number] 11:29:00 [place] [address] Patient Name: FRANK MCFADDEN MR #: [id number] : 1955 Age/Sex: 63/F Req #: [id number] Adm Physician: Ordered by: ROCHELLE DSOUZA MD Report #: [id number] Location: MRI Room/Bed: Procedure: [id number] MRI/MRI ABDOMEN WOW Exam Date: Exam Time: REPORT STATUS: Signed MRI abdomen without and w ith contrast History: Neoplasm of uncertain significance Comparison: N one Technique: Multiplanar and multisequence MRI images of the abdomen were obtained without and subsequently following the administration of intravenous gadolinium. Findings: A hypoenhancing solid mass is noted involving the superior pole the right kidney. This demonstrates decreased T1 and T2 sig nal intensity and measures 3.0 x 2.8 x 2.8 cm in size. A subcentimeter cystic component is seen within the posterior aspect of the lesion. The right renal a rtery and vein are patent. A simple appearing cyst is noted also in the superi or pole of the right kidney more anteriorly measuring 16 mm in size. No hydron ephrosis is appreciated. The left kidney is unremarkable. No lymphadenopa thy is seen within the abdomen. Visualized bowel loops appear normal in lorin iber. No apparent bowel wall thickening. Unremarkable appearance of the p ancreas. Specifically, no pancreatic ductal dilation or mass is appreciated. Scattered subcentimeter nonenhancing lesions throughout the spleen, almost certainly benign. The spleen appears normal in size. Unremarkable appearan ce of the liver. The gallbladder is not visualized. The heart is normal in size. No pericardial effusion is identified. Impression: Hypoenhancing solid mass at the superior pole of the right kidney, representing neoplasm un til proven otherwise. Suggest tissue diagnosis. Signed by: Trenton Oliver MD on 07/08/2019 11:42 AM Dictated By: TRENTON OLIVER MD Electronically S igned By: TRENTON OLIVER MD on 07/08/19 1142 Transcribed By: KAEL on 0 1142 COPY TO: ROCHELLE DSOUZA MD SCR MAMM BILATERAL BHARATH CAD [id number] 10:42:10 - SCR MAMM BILATERAL BHARATH CAD DIGITALBILATERAL DIGITAL SCREENING MAMMOGRAM 3D/2D WITH CAD: 05/10/2019CLINICAL: Asymptomatic. Digital breast tomosynthesis was performed in addition to routine CC and MLO views. Current mammographic images were evaluated by either a [employer] M-Vu or a SEA ImageChecker CAD (computer aided detection system). Comparison is made to exam dated 05/26/2011 mammogram - [facility]. There are scattered fibroglandular tissues in both breasts. No suspicious mass, architectural distortion, malignant type calcification, or lymph node abnormality detected. Breast architecture is stable compared to prior exams.IMPRESSION: NEGATIVEThere is no mammographic evidence of malignancy. Resume annual screening mammography in one year. Nathan otero/nolan:05/13/2019 10:42:10 [employer] Lining Setter: Nori BELL RT(M), [facility] sent: BIRADS 1-2 Normal Mammogram BI- RADS: 1 NegativeComprehensive metabolic 2000 panel - Serum or [id number] 17:17:00* Test Item Value Reference Range Interpretation Comments ALT (test code = ALT) 15 U/L 0-55 AST (test code = AST) 16 U/L 5-34 BUN (test code = BUN) 11.9 mg/dL 9.8-25.0 alk phos (test code = alk phos) 114 unit/L 40-150 glucose (test code = glucose) 81 mg/dL 70-99 albumin (test code = albumin) 3.8 g/dL 3.4-5.1 creatinine (test code = creatinine) 0.88 mg/dL 0.57-1.11 eGFR non- (test code = eGFR non-) > 60 total bilirubin (test code = total bilirubin) 0.5 mg/dL 0.2-1.2 eGFR - (test code = eGFR - ) >60 sodium (test code = sodium) 140 mEq/L 135-145 potassium (test code = potassium) 5.2 mEq/L 3.5-5.3 chloride (test code = chloride) 104 mmol/L 98-110 total protein (test code = total protein) 7.3 g/dL 6.1-8.2 calcium (test code = calcium) 9.9 mg/dL 8.6-10.4 CO2 (test code = CO2) 24.5 mmol/L 20.0-32.0 anion gap (test code = anion gap) 12 [facility] W Auto Differential panel - [id number] 15:46:00 * Test Item Value Reference Range Interpretation Comments WBC (test code = WBC) 6.51 x10*3/?L 3.98-10.04 RBC (test code = RBC) 4.31 10*12/L 3.93-5.22 hemoglobin (test code = hemoglobin) 12.60 g/dL 11.20-15.70 hematocrit (test code = hematocrit) 39.9 % 34.1-44.9 MCV (test code = MCV) 92.6 fL 80.0-100.0 MCH (test code = MCH) 29.2 pg 25.6-32.2 MCHC (test code = MCHC) 31.6 g/dL 32.2-35.5 L RDW-SD (test code = RDW-SD) 42.0 fL 36.4-46.3 platelet count (test code = platelet count) 389.0 k/uL 182.0-369. 0 H MPV (test code = MPV) 10.2 fL 7.5-11.5 neut% (test code = neut%) 63.3 % 34.0-71.1 lymph% (test code = lymph%) 27.5 % 19.3-51.7 mon% (test code = mon%) 7.4 % 4.7-12.5 eos% (test code = eos%) 1.2 % 0.7-5.8 baso% (test code = baso%) 0.6 % 0.1-1.2 neut# (test code = neut#) 4.1 x10*3/?L 1.6-6.1 lymph# (test code = lymph#) 1.8 x10*3/?L 1.2-3.7 mon# (test code = mon#) 0.5 x10*3/?L 0.2-0.9 eos# (test code = eos#) 0.08 x10*3/?L 0.04-0.36 baso# (test code = baso#) 0.04 x10*3/?L 0.01-0.08 [facility] [id number] 12:50:00* Test Item Value Reference Range Interpretation Comments Rate & Rhythm (test code = Rate & Rhythm) SB QRS (test code = QRS) [place] Interval (test code = WY Interval) QRS Duration (test code = QRS Duration) QT Interval (test code = QT Interval) [facility] CenterUrinalysis macro (dipstick) panel - [id number] 12:45:00* Test Item Value Reference Range Interpretation Comments Color Color (test code = Color Color) yellow Color Appearance (test code = Color Appearance) clear Color Glucose (test code = Color Glucose) negative Color Bilirubin (test code = Color Bilirubin) negative Color Ketones (test code = Color Ketones) negative Color Specific War (test code = Color Specific War) 1.005 Color Blood (test code = Color Blood) negative Color PH (test code = Color PH) 6.0 Color Protein (test code = Color Protein) negative Color Urobilinogen (test code = Color Urobilinogen) 0.2 Color Nitrites (test code = Color Nitrites) negative Color Leukocytes (test code = Color Leukocytes) negative [facility] CenterComprehensive metabolic 1999 panel - Serum or Plasma 2019-04-13 05:32:00* Test Item Value Reference Range Interpretation Comments ALT (test code = ALT) 15 U/L 0-55 AST (test code = AST) 16 U/L 5-34 BUN (test code = BUN) 10.0 mg/dL 9.8-25.0 alk phos (test code = alk phos) 95 unit/L 40-150 glucose (test code = glucose) 94 mg/dL 70-99 albumin (test code = albumin) 3.6 g/dL 3.4-5.1 creatinine (test code = creatinine) 0.93 mg/dL 0.57-1.11 eGFR non- (test code = eGFR non-) > 60 total bilirubin (test code = total bilirubin) 0.4 mg/dL 0.2-1.2 eGFR - (test code = eGFR - ) >60 sodium (test code = sodium) 142 mEq/L 135-145 potassium (test code = potassium) 4.7 mEq/L 3.5-5.1 chloride (test code = chloride) 108 mmol/L 98-110 total protein (test code = total protein) 6.9 g/dL 6.1-8.2 calcium (test code = calcium) 9.3 mg/dL 8.6-10.4 CO2 (test code = CO2) 24.7 mmol/L 20.0-32.0 anion gap (test code = anion gap) 9 calc [facility] CenterLipid 1995 panel - Serum or [id number] 05:32:00* Test Item Value Reference Range Interpretation Comments HDL (test code = HDL) 43 mg/dL L triglyceride (test code = triglyceride) 79 mg/dL 0-150 VLDL (calculated) (test code = VLDL (calculated)) 16 mg/dL cholesterol/HDL ratio (test code = cholesterol/HDL ratio) 3.9 mg/dL non-HDL cholesterol (calculated) (test code = non-HDL cholesterol (calculated)) 123 mg/dL 0-160 cholesterol (test code = cholesterol) 166 mg/dL 0-200 Cholesterol in LDL [Mass/volume] in Serum or Plasma (t est code = 2089-1) 107 mg/dL 0-130 [facility] CenterThyrotropin [Units/volume] in Serum or [id number] 05:32:00* Test Item Value Reference Range Interpretation Comments TSH (test code = TSH) 0.156 uIU/mL 0.350-4.940 L [facility] CenterComprehensive metabolic 1999 panel - Serum or Plasma 2019-04-13 05:32:00* Test Item Value Reference Range Interpretation Comments ALT (test code = ALT) 15 U/L 0-55 AST (test code = AST) 16 U/L 5-34 BUN (test code = BUN) 10.0 mg/dL 9.8-25.0 alk phos (test code = alk phos) 95 unit/L 40-150 glucose (test code = glucose) 94 mg/dL 70-99 albumin (test code = albumin) 3.6 g/dL 3.4-5.1 creatinine (test code = creatinine) 0.93 mg/dL 0.57-1.11 eGFR non- (test code = eGFR non-) > 60 total bilirubin (test code = total bilirubin) 0.4 mg/dL 0.2-1.2 eGFR - (test code = eGFR - ) >60 sodium (test code = sodium) 142 mEq/L 135-145 potassium (test code = potassium) 4.7 mEq/L 3.5-5.1 chloride (test code = chloride) 108 mmol/L 98-110 total protein (test code = total protein) 6.9 g/dL 6.1-8.2 calcium (test code = calcium) 9.3 mg/dL 8.6-10.4 CO2 (test code = CO2) 24.7 mmol/L 20.0-32.0 anion gap (test code = anion gap) 9 calc [facility] CenterLip[facility] 1995 panel - Serum or [id number] 05:32:00* Test Item Value Reference Range Interpretation Comments HDL (test code = HDL) 43 mg/dL L triglyceride (test code = triglyceride) 79 mg/dL 0-150 VLDL (calculated) (test code = VLDL (calculated)) 16 mg/dL cholesterol/HDL ratio (test code = cholesterol/HDL ratio) 3.9 mg/dL non-HDL cholesterol (calculated) (test code = non-HDL cholesterol (calculated)) 123 mg/dL 0-160 cholesterol (test code = cholesterol) 166 mg/dL 0-200 Cholesterol in LDL [Mass/volume] in Serum or Plasma (t est code = 2089-1) 107 mg/dL 0-130 [facility] CenterThyrotropin [Units/volume] in Serum or [id number] 05:32:00* Test Item Value Reference Range Interpretation Comments TSH (test code = TSH) 0.156 uIU/mL 0.350-4.940 L [facility] CenterHemoglobin A1c/Hemoglobin.total in [id number] 15:55:00* Test Item Value Reference Range Interpretation Comments Hemoglobin A1c/Hemoglobin.total in Blood (test code = 4548-4) 5.6 % 1.0-5.7 average blood glucose (test code = average blood glucose) 114 mg/dL [facility] CenterHemoglobin A1c/Hemoglobin.total in Ktpgb1051-77-96 15:55:00* Test Item Value Reference Range Interpretation Comments Hemoglobin A1c/Hemoglobin.total in Blood (test code = 4548-4) 5.6 % 1.0-5.7 average blood glucose (test code = average blood glucose) 114 mg/dL [facility] W Auto Differential panel - [id number] 00:00:00 * Test Item Value Reference Range Interpretation Comments WBC (test code = WBC) 6.77 x10*3/?L 3.98-10.04 RBC (test code = RBC) 4.48 10*12/L 3.93-5.22 hemoglobin (test code = hemoglobin) 13.30 g/dL 11.20-15.70 hematocrit (test code = hematocrit) 41.5 % 34.1-44.9 MCV (test code = MCV) 92.6 fL 80.0-100.0 MCH (test code = MCH) 29.7 pg 25.6-32.2 MCHC (test code = MCHC) 32.0 g/dL 32.2-35.5 L RDW-SD (test code = RDW-SD) 48.5 fL 36.4-46.3 H platelet count (test code = platelet count) 341.0 k/uL 182.0-369. 0 MPV (test code = MPV) 10.5 fL 7.5-11.5 neut% (test code = neut%) 62.4 % 34.0-71.1 lymph% (test code = lymph%) 27.2 % 19.3-51.7 mon% (test code = mon%) 7.4 % 4.7-12.5 eos% (test code = eos%) 2.1 % 0.7-5.8 baso% (test code = baso%) 0.9 % 0.1-1.2 neut# (test code = neut#) 4.2 x10*3/?L 1.6-6.1 lymph# (test code = lymph#) 1.8 x10*3/?L 1.2-3.7 mon# (test code = mon#) 0.5 x10*3/?L 0.2-0.9 eos# (test code = eos#) 0.14 x10*3/?L 0.04-0.36 baso# (test code = baso#) 0.06 x10*3/?L 0.01-0.08 [facility] CenterComprehensive metabolic 2000 panel - Serum or Plasma 2019-02-13 00:00:00* Test Item Value Reference Range Interpretation Comments ALT (test code = ALT) 19 U/L 0-55 AST (test code = AST) 23 U/L 5-34 BUN (test code = BUN) 14.1 mg/dL 9.8-25.0 alk phos (test code = alk phos) 105 unit/L 40-150 glucose (test code = glucose) 82 mg/dL 70-99 albumin (test code = albumin) 3.8 g/dL 3.4-5.1 creatinine (test code = creatinine) 0.98 mg/dL 0.57-1.11 eGFR non- (test code = eGFR non-marco n angolan) 57 mL/min/1.73m2 A total bilirubin (test code = total bilirubin) 0.4 mg/dL 0.2-1.2 eGFR - (test code = eGFR - ) >60 sodium (test code = sodium) 140 mEq/L 135-145 potassium (test code = potassium) 4.3 mEq/L 3.5-5.1 chloride (test code = chloride) 108 mmol/L 98-110 total protein (test code = total protein) 7.5 g/dL 6.1-8.2 calcium (test code = calcium) 9.4 mg/dL 8.6-10.4 CO2 (test code = CO2) 27.3 mmol/L 20.0-32.0 anion gap (test code = anion gap) 5 calc [facility] CenterLipid 1996 panel - Serum or [id number] 00:00:00* Test Item Value Reference Range Interpretation Comments HDL (test code = HDL) 54 mg/dL triglyceride (test code = triglyceride) 132 mg/dL 0-150 VLDL (calculated) (test code = VLDL (calculated)) 26 mg/dL cholesterol/HDL ratio (test code = cholesterol/HDL ratio) 6.6 mg/dL non-HDL cholesterol (calculated) (test code = non-HDL cholesterol (calculated)) 303 mg/dL 0-160 H cholesterol (test code = cholesterol) 357 mg/dL 0-200 H Cholesterol in LDL [Mass/volume] in Serum or Plasma (t est code = 2089-1) 277 mg/dL 0-130 H [facility] CenterThyrotropin [Units/volume] in Serum or Qnhgza1735-71-80 00:00:00* Test Item Value Reference Range Interpretation Comments TSH (test code = TSH) 61.332 uIU/mL 0.350-4.940 H [facility] CenterHemoglobin A1c/Hemoglobin.total in Xrbfi0872-28-52 00:00:00* Test Item Value Reference Range Interpretation Comments Hemoglobin A1c/Hemoglobin.total in Blood (test code = 4548-4) 5.8 % 1.0-5.7 H average blood glucose (test code = average blood glucose) 120 mg/dL [facility] CenterUrinalysis macro (dipstick) panel - [id number] 09:00:00* Test Item Value Reference Range Interpretation Comments Color Color (test code = Color Color) yellow Color Appearance (test code = Color Appearance) clear Color Glucose (test code = Color Glucose) negative Color Bilirubin (test code = Color Bilirubin) negative Color Ketones (test code = Color Ketones) negative Color Specific War (test code = Color Specific War) 1.030 Color Blood (test code = Color Blood) negative Color PH (test code = Color PH) 5.5 Color Protein (test code = Color Protein) negative Color Urobilinogen (test code = Color Urobilinogen) 0.2 Color Nitrites (test code = Color Nitrites) negative Color Leukocytes (test code = Color Leukocytes) negative [facility] PracticeB-Type Natriuretic Bulkiza1718-34-91 13:32:00* Test Item Value Reference Range Interpretation Comments B-Type Natriuretic Peptide (test code = 23091-4) 28.7 0-100 [facility] [id number] 13:24:00* Test Item Value Reference Range Interpretation Comments Creatine Kinase MB (test code = 38523-2) 2.70 0-5.0 [facility] HospitalTroponin [id number] 13:24:00* Test Item Value Reference Range Interpretation Comments Troponin I (test code = TNS7966) 0.006 0-0.300 [facility] ([facility])2018-06-13 13:20:00 [facility] [address] [place] [address] Patient Name: FRANK MCFADDEN MR #: [id number] : 1955 Age/Sex: 62/F Req #: [id number] Adm Physician: Ordered by: WILBERTO MEZA AIR POLLUTION ENGINEER Report #: [id number] Location: ER Room/Bed: Procedure: [id number] D X/CHEST SINGLE (PORTABLE) Exam Date: 06/13/18 Exam T christopher: 1255 REPORT STATUS: Signed EXAMINATION: CHEST SINGLE (PORTABLE) INDICATION: Dizziness with back p ain. COMPARISON: None FINDINGS: TUBES and LINES: None. LUNGS: Moderate inflation of the lungs. Multiple leads overlying the right hem ithorax partially obscures evaluation. There are patchy opacities at the right lung base. No evidence of pulmonary edema. PLEURA: No pleural effusion o r pneumothorax. HEART AND MEDIASTINUM: The cardiomediastinal silhouette i s unremarkable. BONES AND SOFT TISSUES: No acute osseous abnormality. UPPER ABDOMEN: No free air under the diaphragm. IMPRESSION: Pat shahab opacities at the right lung base, likely atelectasis. Pneumonia is possibl e in the appropriate clinical setting. Signed by: Dr. Edward Mendenhall MD on 05/26 1:23 PM Dictated By: EDWARD MENDENHALL MD 1323 Transcribed By: KAEL on 06/13/18 1323 COPY TO: WILBERTO MEZA AIR POLLUTION ENGINEER Sodium Tpkkf0247-10-61 13:19:00* Test Item Value Reference Range Interpretation Comments Sodium Level (test code = 2951-2) 137 136-145 [facility] HospitalPotassium Ujcem6378-41-52 13:19:00* Test Item Value Reference Range Interpretation Comments Potassium Level (test code = 2823-3) 4.2 3.5-5.1 [facility] HospitalChloride Nsatg9283-84-01 13:19:00* Test Item Value Reference Range Interpretation Comments Chloride Level (test code = 2075-0) 105 98-107 [facility] HospitalCarbon Dioxide Pcvjx4846-16-03 13:19:00* Test Item Value Reference Range Interpretation Comments Carbon Dioxide Level (test code = 2028-9) 24 22-29 [facility] HospitalAnion Sou2356-43-88 13:19:00* Test Item Value Reference Range Interpretation Comments Anion Gap (test code = 69128-8) 12.2 8-16 [facility] HospitalBlood Urea Jqhqmnaa7456-45-00 13:19:00* Test Item Value Reference Range Interpretation Comments Blood Urea Nitrogen (test code = 3094-0) 17 7- [facility] HospitalCreatinine2019-03-20 13:19:00* Test Item Value Reference Range Interpretation Comments Creatinine (test code = 2160-0) 0.94 0.57-1.11 [facility] HospitalBUN/Creatinine Egsug6102-66-46 13:19:00* Test Item Value Reference Range Interpretation Comments BUN/Creatinine Ratio (test code = 3097-3) 18 6- [facility] HospitalEstimat Glomerular Filtration Rate 2018-06-13 13:19:00* Test Item Value Reference Range Interpretation Comments Estimat Glomerular Filtration Rate (test code = 899377074) 60 >60 Ranges were taken from the National Kidney Disease Education Program and the [facility] [employer] literature.Reference ranges:60 or greater: Cwuyqa28-30 ( for 3 consecutive months): Chronic kidney disease 15 or less: Kidney failureHouston Methodist HospitalGlucose Nngfe7648-64-54 13:19:00* Test Item Value Reference Range Interpretation Comments Glucose Level (test code = XIF9298) 95 74-118 [facility] HospitalCalcium Qysyq1834-48-41 13:19:00* Test Item Value Reference Range Interpretation Comments Calcium Level (test code = 33140-3) 9.2 8.4-10.2 [facility] HospitalMagnesium Dknid5322-37-07 13:19:00* Test Item Value Reference Range Interpretation Comments Magnesium Level (test code = 39172-5) 2.1 1.3-2.1 [facility] HospitalTotal Yikjwoahn1445-93-68 13:19:00* Test Item Value Reference Range Interpretation Comments Total Bilirubin (test code = 1975-2) 0.2 0.2-1.2 [facility] HospitalAspartate Amino Transf (AST/SGOT) 2018-06-13 13:19:00* Test Item Value Reference Range Interpretation Comments Aspartate Amino Transf (AST/SGOT) (test code = Aspartate Amino Transf (AST/SGOT)) 17 5-34 [facility] HospitalAlanine Aminotransferase (ALT/SGPT) 2018-06-13 13:19:00* Test Item Value Reference Range Interpretation Comments Alanine Aminotransferase (ALT/SGPT) (test code = 1742-6) 13 0-55 [facility] HospitalTotal Pnwyaip9675-69-19 13:19:00* Test Item Value Reference Range Interpretation Comments Total Protein (test code = 2885-2) 7.4 6.5-8.1 [facility] HospitalAlbumin2019-03-20 13:19:00* Test Item Value Reference Range Interpretation Comments Albumin (test code = 1751-7) 3.4 3.5-5.0 L [facility] HospitalGlobulin2019-03-20 13:19:00* Test Item Value Reference Range Interpretation Comments Globulin (test code = 20617-5) 4.0 2.3-3.5 H [facility] HospitalAlbumin/Globulin Xbufs6932-55-44 13:19:00 * Test Item Value Reference Range Interpretation Comments Albumin/Globulin Ratio (test code = 1759-0) 0.9 0.8-2.0 [facility] HospitalAlkaline Ioejdubzqvy4023-30-46 13:19:00* Test Item Value Reference Range Interpretation Comments Alkaline Phosphatase (test code = 6768-6) 105 40-150 [facility] HospitalCreatine Dftbep5145-50-41 13:19:00* Test Item Value Reference Range Interpretation Comments Creatine Kinase (test code = 2157-6) 136 29-168 [facility] HospitalLipase2019-03-20 13:19:00* Test Item Value Reference Range Interpretation Comments Lipase (test code = 3040-3) 30 8-78 [facility] HospitalUrine [id number] 13:17:00* Test Item Value Reference Range Interpretation Comments Urine WBC (test code = 5821-4) NONE 0-5 [facility] HospitalUrine IOD5541-47-01 13:17:00* Test Item Value Reference Range Interpretation Comments Urine RBC (test code = 75533-2) NONE 0-5 [facility] HospitalUrine Qzkmmetd7881-04-07 13:17:00* Test Item Value Reference Range Interpretation Comments Urine Bacteria (test code = 48955-3) RARE NONE [facility] HospitalUrine Epithelial Zahse6392-24-61 13:17:00 * Test Item Value Reference Range Interpretation Comments Urine Epithelial Cells (test code = 45966-9) RARE NONE [facility] HospitalCT BRAIN UQ9654-20-67 13:12:00 [facility] [address] [address] Patient Name: FRANK MCFADDEN MR #: [id number] : 1955 Age/Sex: 62/F Req #: [id number] Adm Physician: Ordered by: WILBERTO MEZA NP Report #: [id number] Location: ER Room/Bed: Procedure: [id number] C T/CT BRAIN WO Exam Date: 06/13/18 Exam Time: 1240 REPORT STATUS: Signed CT BRAIN WO HISTORY: Headache, dizziness COMPARISON: None. Technique: Non contrast axial scans were obtained from skull base to the vertex. Coronal and sagittal reconstructions obtained from the axial data. One or more of the [facility] dose reduction techniques were used: Automated exposure control, adjus tment of the mA and/or kV according to patient size, and/or utilization of ite rative reconstruction technique. DISCUSSION: Scalp/Skull: Plate-screw construct at the right zygomaticomaxillary junction. Otherwise, unremarkable. Brain sulci: Mildly prominent. Ventricles: Compensatory dilatation. Extra- axial spaces: No masses or fluid collections. Carotid siphon calcifications ar e present. Parenchyma: Mild bilateral deep white matter hypodensity is l ikely chronic microvascular ischemic change. Otherwise, no masses, hemorrha ge, or large vascular territory acute infarct. Dural sinuses: No abnormal densities. Sellar/Suprasellar region: Intact. Skull base: Intact. Incident al findings: None. IMPRESSION: 1. No acute intracranial abnormalities. 2. Mild supratentorial chronic microvascular ischemic change. Mild generalized cerebral volume loss. Signed by: Dr. Brian Herbert M.D. on 9 1:14 PM Dictated By: BRIAN HERBERT MD 13 Transcribed By: KAEL on 06/13/181313 COPY TO: WILBRETO MEZA [employer] Urine Htidp1085-57-77 13:10:00* Test Item Value Reference Range Interpretation Comments Urine Color (test code = 5778-6) YELLOW YELLOW [facility] HospitalUrine Wftqrqs2369-92-89 13:10:00* Test Item Value Reference Range Interpretation Comments Urine Clarity (test code = 97436-3) CLEAR CLEAR [facility] HospitalUrine Specific Athporl5392-50-01 13:10:00 * Test Item Value Reference Range Interpretation Comments Urine Specific War (test code = 5811-5) 1.020 1.010-1.02 5 [facility] HospitalUrine hS8881-59-63 13:10:00* Test Item Value Reference Range Interpretation Comments Urine pH (test code = 80894-5) 6 5-7 [facility] HospitalUrine Leukocyte Ydpmjzvr1662-96-39 13:10:00* Test Item Value Reference Range Interpretation Comments Urine Leukocyte Esterase (test code = 5799-2) NEGATIVE NEGATIVE [facility] HospitalUrine Ffqjeqx8200-82-36 13:10:00* Test Item Value Reference Range Interpretation Comments Urine Nitrite (test code = 17500-2) NEGATIVE NEGATIVE [facility] HospitalUrine Zbsvuei9796-72-16 13:10:00* Test Item Value Reference Range Interpretation Comments Urine Protein (test code = 5804-0) NEGATIVE NEGATIVE [facility] HospitalUrine Glucose (UA)2018-06-13 13:10:00* Test Item Value Reference Range Interpretation Comments Urine Glucose (UA) (test code = 2349-9) NEGATIVE NEGATIVE [facility] HospitalUrine Ifvcizn1349-45-09 13:10:00* Test Item Value Reference Range Interpretation Comments Urine Ketones (test code = 09929-3) NEGATIVE NEGATIVE [facility] HospitalUrine Yppaoyjvktot8649-39-19 13:10:00* Test Item Value Reference Range Interpretation Comments Urine Urobilinogen (test code = 61838-7) 0.2 0.2-1 [facility] HospitalUrine Psynqxvyf9786-08-45 13:10:00* Test Item Value Reference Range Interpretation Comments Urine Bilirubin (test code = 1978-6) NEGATIVE NEGATIVE [facility] HospitalUrine Jelzr0842-94-93 13:10:00* Test Item Value Reference Range Interpretation Comments Urine Blood (test code = 62438-4) NEGATIVE NEGATIVE [facility] HospitalProthrombin Pwhj3129-29-97 13:08:00* Test Item Value Reference Range Interpretation Comments Prothrombin Time (test code = 5902-2) 11.8 11.9-14.5 L [facility] HospitalProthromb Time International Ratio 2018-06-13 13:08:00* Test Item Value Reference Range Interpretation Comments Prothromb Time International Ratio (test code = 6301-6) 0.82 Oral Anticoagulant Therapy INR Values:1. Low Intensity Therapy 1.5 - 2.02 . Moderate Intensity Therapy 2.0 - 3.03. High Intensity Therapy(1) 2.5 - 3. 54. High Intensity Therapy(2) 3.0 - 4.05. Panic Value INR > 5.0 [facility] HospitalActivated Partial Thromboplast Time 2018-06-13 13:08:00* Test Item Value Reference Range Interpretation Comments Activated Partial Thromboplast Time (test code = 01838-4) 25.9 23.8-35.5 [facility] HospitalWhite Blood Mltss1671-97-69 12:59:00* Test Item Value Reference Range Interpretation Comments White Blood Count (test code = 6690-2) 7.46 4.8-10.8 [facility] HospitalRed Blood Vwbxf0419-59-42 12:59:00* Test Item Value Reference Range Interpretation Comments Red Blood Count (test code = 789-8) 4.68 3.6-5.1 [facility] HospitalHemoglobin2019-03-20 12:59:00* Test Item Value Reference Range Interpretation Comments Hemoglobin (test code = 19964-2) 13.4 12.0-16.0 [facility] HospitalHematocrit2019-03-20 12:59:00* Test Item Value Reference Range Interpretation Comments Hematocrit (test code = 4544-3) 41.4 34.2-44.1 [facility] HospitalMean Corpuscular Udchoo9209-37-32 12:59:00* Test Item Value Reference Range Interpretation Comments Mean Corpuscular Volume (test code = 787-2) 88.5 81-99 [facility] HospitalMean Corpuscular Bdadqdgurq2261-61-91 12:59:00* Test Item Value Reference Range Interpretation Comments Mean Corpuscular Hemoglobin (test code = 785-6) 28.6 28-32 [facility] HospitalMean Corpuscular Hemoglobin Concent 2018-06-13 12:59:00* Test Item Value Reference Range Interpretation Comments Mean Corpuscular Hemoglobin Concent (test code = 786-4) 32.4 31-35 [facility] HospitalRed Cell Distribution Ggdeb7126-49-46 12:59:00* Test Item Value Reference Range Interpretation Comments Red Cell Distribution Width (test code = 92198-4) 13.7 11.7 -14.4 [facility] HospitalPlatelet Wxfia3456-34-58 12:59:00* Test Item Value Reference Range Interpretation Comments Platelet Count (test code = 777-3) 340 140-360 [facility] HospitalNeutrophils (%) (Auto)2018-06-13 12:59:00 * Test Item Value Reference Range Interpretation Comments Neutrophils (%) (Auto) (test code = 85488-6) 60.4 38.7-80.0 [facility] HospitalLymphocytes (%) (Auto)2018-06-13 12:59:00 * Test Item Value Reference Range Interpretation Comments Lymphocytes (%) (Auto) (test code = 736-9) 29.2 18.0-39.1 [facility] HospitalMonocytes (%) (Auto)2018-06-13 12:59:00* Test Item Value Reference Range Interpretation Comments Monocytes (%) (Auto) (test code = 5905-5) 7.8 4.4-11.3 [facility] HospitalEosinophils (%) (Auto)2018-06-13 12:59:00 * Test Item Value Reference Range Interpretation Comments Eosinophils (%) (Auto) (test code = 713-8) 1.6 0.0-6.0 [facility] HospitalBasophils (%) (Auto)2018-06-13 12:59:00* Test Item Value Reference Range Interpretation Comments Basophils (%) (Auto) (test code = 706-2) 0.7 0.0-1.0 [facility] HospitalIM GRANULOCYTES %2018-06-13 12:59:00* Test Item Value Reference Range Interpretation Comments IM GRANULOCYTES % (test code = IM GRANULOCYTES %) 0.3 0.0- 1.0 [facility] HospitalNeutrophils # (Auto)2018-06-13 12:59:00* Test Item Value Reference Range Interpretation Comments Neutrophils # (Auto) (test code = 751-8) 4.5 2.1-6.9 [facility] HospitalLymphocytes # (Auto)2018-06-13 12:59:00* Test Item Value Reference Range Interpretation Comments Lymphocytes # (Auto) (test code = 40605-8) 2.2 1.0-3.2 [facility] HospitalMonocytes # (Auto)2018-06-13 12:59:00* Test Item Value Reference Range Interpretation Comments Monocytes # (Auto) (test code = 742-7) 0.6 0.2-0.8 [facility] HospitalEosinophils # (Auto)2018-06-13 12:59:00* Test Item Value Reference Range Interpretation Comments Eosinophils # (Auto) (test code = 711-2) 0.1 0.0-0.4 [facility] HospitalBasophils # (Auto)2018-06-13 12:59:00* Test Item Value Reference Range Interpretation Comments Basophils # (Auto) (test code = 704-7) 0.1 0.0-0.1 [facility] HospitalAbsolute Immature Granulocyte (auto 2018-06-13 12:59:00* Test Item Value Reference Range Interpretation Comments Absolute Immature Granulocyte (auto (wili t code = Absolute Immature Granulocyte (auto) 0.02 0-0.1 [facility]
--- OUTSIDE RECORDS SUMMARY | 2020-02-05 12:47 | XMS REPORT | Clinical Summary ---
Author Author [facility] [place] [facility] Organization [facility] [place] [facility] Address Unknown Phone Unavailable Care Team Providers Care Police Detective Name Role Phone Luis Alberto Miller MD PCP [phone] Allergies Comments Active Allergy Reactions Severity Noted Date Penicillins GI 10/08/2019 Intolerance Medications End Date Status Medication Sig Dispensed Refills Start Date Active rosuvastatin (CRESTOR) 10 Take 10 mg by 0 mg tablet mouth nightly. Active levothyroxine (SYNTHROID) Take 75 mcg 0 75 mcg tablet by mouth daily. Active PARoxetine (PAXIL) 20 MG Take 20 mg by 0 tablet mouth every morning. Active diazePAM (VALIUM) 2 MG 1 po tid prn 0 01 tablet dizziness 8 Active levothyroxine (Synthroid) Daily 0 88 mcg tablet Active rosuvastatin (CRESTOR) 10 rosuvastatin 0 mg tablet 10 mg tablet 10/24/2019 acetaminophen-codeine Take 1-2 20 tablet 0 09/25 (TYLENOL WITH CODEINE #3) tablets by 0 300-30 mg per mouth every 6 tabletIndications: acute (six) hours pain as needed for moderate pain for up to 10 days .acute pain. 11/13/2019 docusate sodium (Colace) Take 1 60 capsule 0 0 100 MG capsule capsule (100 0 mg total) by mouth 2 (two) times a day for 30 days. Active Problems Problem Noted Date Right renal mass 10/11/2019 Encounters Care Team Description Date Type Specialty Roselia Day, NADER 10/16/2019 Patient Quality Outreach Roselia Day RN 10/15/2019 Patient Quality Outreach Sudarshan Lees DO Everitt, Amanda W., SELIN 10/11/2019 Anesthesia Urology Event Mati Mayer MD ROBOTIC ASSISTED LAPAROSCOPIC RIGHT PART IAL NEPHRECTOMY W/ INTRAOPERATIVE RENAL ULTRASOUND 10/11/2019 Surgery Urology Mati Mayer MD Right renal mass 10/11/2019 Hospital General Surgery - Encounter 10/14/2019 Mati Mayer MD Pre-op testing (Primary Dx) 10/08/2019 Pre-Admit Pre-Admission Testi ng Testing Appointment 10/08/2019 Travel after 02/04/2019 Surgical History Surgery Date Site/Laterality Comments HYSTERECTOMY 03/27/1984 - Partial Vaginal 03/26/1985 HERNIA REPAIR 03/27/2013 - hiatal hernia 03/26/2014 CHOLECYSTECTOMY 03/27/2013 - 03/26/2014 RENAL BIOPSY 07/26/2019 - Right 08/25/2019 NEPHRECTOMY, PARTIAL, 10/11/2019 Right Procedur e: ROBOTIC ASSISTED LAPAROSCOPIC RIGHT LAPAROSCOPIC, PARTIAL NEPHRECTOMY W/ INTR AOPERATIVE RENAL ROBOT-ASSISTED ULTRASOUND; Surgeon: Mati Browning MD; Location: [facility] MAIN OR; Service: Urolog y; Laterality: Right; Medical devices from this surgery are i n the Implants section. Medical History Medical History Date Comments Anesthesia NHAP; NFHAP Wears glasses Hypercholesteremia Hypothyroidism Snoring Exercises 5 to 6 times per week works 5 days/wk. Cl imb stairs with no cp or sob. Hiatal hernia Depression GERD (gastroesophageal reflux disease) Emphysema lung (HCC) mild Renal mass, right Back problem lower back with spondylosis Wears dentures upper and lower Family History Medical History Relation Name Comments Breast cancer Maternal Grandmother Cancer Maternal Grandmother Heart disease Mother Cancer Other Colon cancer Other Relation Name Status Comments Maternal Grandmother Mother Other Social History Date Tobacco Use Types Packs/Day Years Used Current Every Day Smoker Cigarettes 1 50 Smokeless Tobacco: Never Used Drinks/Week oz/Week Comments Alcohol Use rarely Yes Sex Assigned at Date Recorded Not on file Last Filed Vital Signs Reading Time Taken Comments Vital Sign 127/65 10/14/2019 7:44 AM CDT Blood Pressure 72 10/14/2019 7:44 AM CDT Pulse 36.9 C (98.5 F) 10/14/2019 7:44 AM CDT Temperature 18 10/14/2019 7:44 AM CDT Respiratory Rate 95% 10/14/2019 7:44 AM CDT Oxygen Saturation - - Inhaled Oxygen Concentration 75.3 kg (166 lb) 10/11/2019 11:46 AM CDT Weight 167.6 cm (5' 6") 10/11/2019 11:46 AM CDT Height 26.79 10/11/2019 11:46 AM CDT Body Mass Index Plan of Treatment Health Maintenance Due Date Last Done Comments BREAST CANCER SCREENING 12/05/2003 COLONOSCOPY SCREENING 12/05/2003 SHINGLES VACCINES (#1) 12/05/2003 65+ PNEUMOCOCCAL VACCINE 2018 (1 of 1 - PPSV23) INFLUENZA VACCINE 10/26/2019 Implants Device Identifier Shelf Expiration Date Model / Serial / L ot Implanted Type Area Manufactur er [id number] / / Clip [employer] Hem-O-Moustapha Endoscpc Aplr Medical N/A: N/A TELEFLEX Plymr Lg - [id number] Clips for MEDICAL Implanted: Qty: 5 on 10/11/2019 by Internal Mati Mayer MD at [facility] [id number] / / Clip [employer]igt[employer] Hem-[employer]-Moustapha Endosc[employer] Medical N/A: N/A TELEFLEX Aplr Xl Plymr - [id number] Clips for MEDICAL Implanted: Qty: 1 on 10/11/2019 by Internal Mati Mayer MD at [facility] Procedures Comments Procedure Name Priority Date/Time Associated Diag nosis ESTIMATED GFR Routine 10/14/2019 4:00 AM CDT BASIC METABOLIC PANEL Routine 10/14/2019 4:00 AM CDT HEMATOCRIT Routine 10/14/2019 4:00 AM CDT HEMOGLOBIN Routine 10/14/2019 4:00 AM CDT HEMOGLOBIN & HEMATOCRIT Routine 10/13/2019 12:00 PM CDT HEMATOCRIT Routine 10/13/2019 5:30 AM CDT HEMOGLOBIN Routine 10/13/2019 5:30 AM CDT ESTIMATED GFR Routine 10/13/2019 4:00 AM CDT BASIC METABOLIC PANEL Routine 10/13/2019 4:00 AM CDT CBC HEMOGRAM Routine 10/12/2019 4:20 AM CDT HEMATOCRIT Routine 10/12/2019 4:20 AM CDT ESTIMATED GFR Routine 10/12/2019 4:00 AM CDT BASIC METABOLIC PANEL Routine 10/12/2019 4:00 AM CDT ESTIMATED GFR STAT 10/11/2019 5:31 PM CDT BASIC METABOLIC PANEL STAT 10/11/2019 5:31 PM CDT HEMOGLOBIN STAT 10/11/2019 5:31 PM CDT HEMATOCRIT STAT 10/11/2019 5:31 PM CDT SURGICAL PATHOLOGY Routine 10/11/2019 REQUEST 4:15 PM CDT GLUCOSE LEVEL, SYRINGE STAT 10/11/2019 1:45 PM CDT IONIZED CALCIUM, ARTERIAL STAT 10/11/2019 1:45 PM CDT HEMOGLOBIN, SYRINGE STAT 10/11/2019 1:45 PM CDT SODIUM LEVEL, SYRINGE STAT 10/11/2019 1:45 PM CDT POTASSIUM, SYRINGE STAT 10/11/2019 1:45 PM CDT ARTERIAL BLOOD GAS, STAT 10/11/2019 CORRECTED 1:45 PM CDT [place] AN ELECTIVE Routine 10/11/2019 ENDOTRACHEAL AIRWAY 1:41 PM CDT NEPHRECTOMY, PARTIAL, 10/11/2019 Right renal mas s LAPAROSCOPIC, 1:00 PM CDT ROBOT-ASSISTED Case Notes XI Special Needs XI ESTIMATED GFR Routine 10/08/2019 3:49 PM CDT COMPREHENSIVE METABOLIC Routine 10/08/2019 Pre-op testing PANEL 3:49 PM CDT HC COMPLETE BLD COUNT Routine 10/08/2019 Pre-op t esting W/AUTO DIFF 3:49 PM CDT PREPARE RBC Routine 10/08/2019 3:21 PM CDT TYPE AND SCREEN Routine 10/08/2019 Pre-op testing 3:21 PM CDT URINALYSIS SCREEN AND Routine 10/08/2019 Pre-op t esting MICROSCOPY, WITH REFLEX 3:21 PM CDT TO CULTURE COVID-19 QUALITATIVE PCR Routine 10/08/2019 Pre-o p testing 3:18 PM CDT URINE CULTURE Routine 10/08/2019 3:15 PM CDT after 02/04/2019 Results * Estimated GFR (10/14/2019 4:00 AM CDT) Only the most recent of 5 results within the time period is included. Estimated GFR 59 (A) mL/min/1.73 m2 [place] Comment: [facility] Interpretation G1 >=90 Normal or high G2 60-89 Mildly decreased G3a 45-59 Mildly to moderately decreased G3b 30-44 Moderately to severely decreased G4 15-29 Severely decreased G5 <15 Kidney failure The eGFR was calculated using the Chronic Kidney Disease Epidemiology Collaboration (CKD-EPI) equation. Interpretation is based on recommendations of the National Kidney Foundation-Kidney Disease Outcomes Quality Initiative (NKF-KDOQI) published in 2014. Specimen Performing Organization Address City/[facility]/ZIP Code P laura Number [facility] DEPARTMENT OF [address] [place] [address] PATHOLOGY AND [facility] MEDICINE [address] * Hemoglobin (10/14/2019 4:00 AM CDT) Only the most recent of 3 results within the time period is included. HGB 9.1 (L) 12.0 - 16.0 g/dL [facility] Specimen Blood Performing Organization Address City/[facility] [place] [address] PATHOLOGY AND [facility] MEDICINE [address] * Hematocrit (10/14/2019 4:00 AM CDT) Only the most recent of 4 results within the time period is included. HCT 28.8 (L) 37.0 - 47.0 % [facility] Specimen Blood Performing Organization Address City/[facility]/ZIP Code P laura Number [facility] [place] [address] PATHOLOGY AND GENOMIC MEDICINE [address] * Basic metabolic panel (10/14/2019 4:00 AM CDT) Only the most recent of 4 results within the time period is included. Pathologist [facility] Sodium 138 135 - 148 mEq/L [facility] Potassium 4.1 3.5 - 5.0 mEq/L [facility] Chloride 108 98 - 112 mEq/L [facility] CO2 21 (L) 24 - 31 mEq/L [facility] Anion gap 9@ANIO 7 - 15 mEq/L [facility] BUN 7 (L) 8 - 23 mg/dL [facility] Creatinine 1.00 (H) 0.50 - 0.90 mg/dL [facility] Glucose 96 65 - 99 mg/dL [facility] Calcium 8.6 (L) 8.8 - 10.2 mg/dL [facility] Specimen Blood Performing Organization Address City/[facility]/ZIP [facility] P laura Number [facility] [place] [address] PATHOLOGY AND GENOMIC MEDICINE [address] * Hemoglobin & hematocrit (10/13/2019 12:00 PM CDT) Pathologist [facility] HGB 10.3 (L) 12.0 - 16.0 g/dL [facility] HCT 31.8 (L) 37.0 - 47.0 % [facility] Specimen Blood Performing Organization Address City/[facility] P laura Number [facility] [place] [address] PATHOLOGY AND GENOMIC MEDICINE [address] * CBC hemogram (10/12/2019 4:20 AM CDT) Pathologist [facility] WBC 8.20 4.50 - 11.00 k/uL [facility] RBC 3.88 (L) 4.20 - 5.50 m/uL [facility] HGB 11.3 (L) 12.0 - 16.0 g/dL [facility] HCT 35.1 (L) 37.0 - 47.0 % [facility] MCV 91.5 82.0 - 100.0 fL [facility] MCH 29.1 27.0 - 34.0 pg [facility] MCHC 31.8 31.0 - 37.0 g/dL [facility] RDW - SD 44.3 37.0 - 55.0 fL [facility] MPV 10.1 8.8 - 13.2 fL [facility] Platelet count 268 150 - 400 k/uL [facility] Nucleated RBC 0.00 /100 WBC [facility] Specimen Narrative Performed At CBC ADDED BY FINESSE CHUA/Trent 10/12/2019 07:37 [place] [facility] DEPARTMENT OF PATHOLOGY AND GENOMIC MEDICINE Performing Organization Address City/[facility] P laura Number [facility] [place] [address] PATHOLOGY AND GENOMIC MEDICINE [address] * Surgical pathology request (10/11/2019 4:15 PM CDT) [facility] DEPARTMENT OF PATHOLOGY AND GENOMIC MEDICINE Surgical See link below for PDF Lab [facility] DEPART [facility] pathology Report OF PATHOLOGY report AND GENOMIC MEDICINE Result status This is Final Report for [facility] DEPARTME NT [id number] OF PATHOLOGY AND GENOMIC MEDICINE Specimen Performing Organization Address [facility] P laura Number [facility] [place] [place] [address] PATHOLOGY AND GENOMIC MEDICINE * Sodium level, syringe (10/11/2019 1:45 PM CDT) Sodium, syringe 137 135 - 148 mEq/L [facility] Specimen Blood Performing Organization Address City/[facility]/ZIP [facility] P laura Number [facility] [place] [address] PATHOLOGY AND GENOMIC MEDICINE [address] * Potassium, syringe (10/11/2019 1:45 PM CDT) Potassium, 4.0 3.5 - 5.0 mEq/L [facility] Specimen Blood Performing Organization Address City/[facility]/ZIP Code P laura Number [facility] DEPARTMENT OF [address] [place] [address] PATHOLOGY AND GENOMIC MEDICINE [address] * Ionized calcium, arterial (10/11/2019 1:45 PM CDT) Ionized 1.08 (L) 1.11 - 1.32 mmol/L [place] calcium, [facility] arterial HOSPITAL Specimen Blood Performing Organization Address City/[facility]/ZIP Code P laura Number [facility] [place] [address] PATHOLOGY AND [facility] MEDICINE [address] * Hemoglobin, syringe (10/11/2019 1:45 PM CDT) Hemoglobin, 12.4 12.0 - 16.0 g/dL [place] syringe [facility] Specimen Blood Performing Organization Address City/[facility] P laura Number [facility] [place] [place] [address] PATHOLOGY AND [facility] MEDICINE [address] * Glucose level, syringe (10/11/2019 1:45 PM CDT) Glucose, 97 65 - 99 mg/dL [place] syringe [facility] Specimen Blood Performing Organization Address City/[facility]/ZIP [facility] P laura Number [facility] [place] [address] PATHOLOGY AND [facility] MEDICINE [address] * Arterial blood gas, corrected (10/11/2019 1:45 PM CDT) pH, arterial 7.38 7.35 - 7.45 [facility] pCO2, arterial 43 35 - 45 mmHg [facility] pO2, arterial 166 (H) 80 - 90 mmHg [facility] Temperature, 35.5 Degrees C [place] Celsius [facility] O2 saturation, 99 95 - 100 % [place] arterial [facility] pH, arterial 7.40 [place] corrected [facility] pCO2, arterial 40 mmHg [place] corrected [facility] pO2, arterial 158 mmHg [facility] Base excess, 0 -2 - 2 mEq/L [place] arterial [facility] Specimen Blood Performing Organization Address City/[facility]/ZIP Code P laura Number [facility] [place] [address] PATHOLOGY AND GENOMIC MEDICINE [address] * Airway (10/11/2019 1:41 PM CDT) Narrative Performed At Eula Gutierrez CRNA 10/11/2019 1 :41 PM Airway Date/Time: 10/11/2019 1:15 PM Performed by: Eula Gutierrez CRNA Authorized by: Sudarshan Lees DO Location: OR Urgency: Elective Difficult Airway: No Anesthesiologist: Sudarshan Lees DO Resident/SENIOR CONSULTING MANAGER/AA: Eula Gutierrez CRNA Performed by: resident/SENIOR CONSULTING MANAGER/AA Preoxygenated with 100% O2: Yes C-spine Precautions Maintained Througho ut: Yes Mask Ventilation: Easy mask Final Airway Type: Endotracheal airwa y Final Endotracheal Airway: ETT Technique Used: Direct laryngoscopy Devices/Methods Used in Placement: In tubating stylet Insertion Site: Oral Blade Type: Jase Laryngoscope Blade/Videolaryngoscope Bl loi Size: 3 ETT Size (mm): 7.0 Measured from: Gums ETT to Gums (cm): 20 Placement Verified by: CO2 detection Laryngoscopic view: Grade I - full vi ew of glottis Rapid Sequence Induction (RSI): No Number of Attempts at Approach: 1 * CBC with platelet and differential (10/08/2019 3:49 PM CDT) WBC 7.40 4.50 - 11.00 k/uL [facility] RBC 4.42 4.20 - 5.50 m/uL [facility] HGB 13.0 12.0 - 16.0 g/dL [facility] HCT 39.8 37.0 - 47.0 % [facility] MCV 90.0 82.0 - 100.0 fL [facility] MCH 29.4 27.0 - 34.0 pg [facility] MCHC 32.7 31.0 - 37.0 g/dL [facility] RDW - SD 43.5 37.0 - 55.0 fL [facility] MPV 9.5 8.8 - 13.2 fL [facility] Platelet count 310 150 - 400 k/uL [facility] Nucleated RBC 0.00 /100 WBC [facility] Neutrophils 58.0 39.0 - 69.0 % [facility] Lymphocytes 33.4 25.0 - 45.0 % [facility] Monocytes 6.6 0.0 - 10.0 % [facility] Eosinophils 1.4 0.0 - 5.0 % [facility] Basophils 0.5 0.0 - 1.0 % [facility] Immature 0.1Comment: "Immature 0.0 - 1.0 % [place] granulocytes granulocytes" (promyelocytes, METHOD IST myelocytes, metamyelocytes) [facility] Specimen Blood Performing Organization Address [facility] P laura Number [facility] [place] [place] [address] PATHOLOGY AND GENOMIC MEDICINE [address] * Comprehensive metabolic panel (10/08/2019 3:49 PM CDT) Sodium 141 135 - 148 mEq/L [facility] Potassium 4.7 3.5 - 5.0 mEq/L [facility] Chloride 104 98 - 112 mEq/L [facility] CO2 25 24 - 31 mEq/L [facility] Anion gap 12@ANIO 7 - 15 mEq/L [facility] BUN 15 8 - 23 mg/dL [facility] Creatinine 1.04 (H) 0.50 - 0.90 mg/dL [facility] Glucose 83 65 - 99 mg/dL [facility] Calcium 9.9 8.8 - 10.2 mg/dL [facility] Protein 8.0 6.3 - 8.3 g/dL [place] Comment: [facility] 4.6-7.0 g/dL 1 week 4.4-7.6 g/dL 7 months-1year 5.1-7.3 g/dL 1-2 years 5.6-7.5 g/dL >3 years 6.0-8.0 g/dL 18-150 6.3-8.3 g/dL Albumin 3.9 3.5 - 5.0 g/dL [facility] A/G ratio 1.0 0.7 - 3.8 [facility] Alkaline 104 35 - 104 U/L [place] phosphatase [facility] AST 23 10 - 35 U/L [facility] ALT 23 5 - 50 U/L [facility] Total bilirubin 0.4 0.0 - 1.2 mg/dL [facility] Specimen Blood Performing Organization Address [facility] P laura Number [address] [address] PATHOLOGY AND GENOMIC MEDICINE [address] * Urinalysis screen and microscopy, with reflex to culture (10/08/2019 3:21 PM CDT) Specimen site Clean catch [facility] Color, UA Yellow [facility] Appearance, UA Clear [facility] Specific 1.021 1.001 - 1.035 [place] gravity, [facility] pH, UA 6.0 5.0 - 8.5 [facility] Protein, UA Negative Negative [facility] Glucose, UA Negative Negative [facility] Ketones, UA Negative Negative [facility] Bilirubin, UA Negative Negative [facility] Blood, UA Negative Negative [facility] Nitrite, UA Negative Negative [facility] Urobilinogen, 2.0 (A) <2.0 [facility] Leukocyte Negative Negative [place] [facility] Epithelial <1 /HPF [place] [facility]IDLAND [facility] WBC, UA <1 0 - 4 /HPF [facility] RBC, UA 2 0 - 5 /HPF [facility] Bacteria, UA Few None seen [facility] Yeast, UA None seen [facility] Yeast with None seen [place] [facility] Specimen Urine Performing Organization Address City/State/ZIP Code P laura Number [facility] DEPARTMENT OF [address] [place] [address] PATHOLOGY AND GENOMIC MEDICINE [address] * Prepare RBC (10/08/2019 3:21 PM CDT) Product name Apheresis Red Cell AS3 #2 LR [facility] Unit number [id number] [facility] Product code [id number] [facility] Dispense status Returned to BB not transfused [facility] Blood [id number] [place] expiration date [facility] Blood type code 5100 [facility] Blood type O POSITIVE [facility] Compatibility Compatible [facility] Product name Apheresis Red Cell AS3 #1 LR [facility] Unit number [id number] [facility] Product code [id number] [facility] Dispense status Returned to BB not transfused [facility] Blood [id number] [place] expiration date [facility] Blood type code 5100 [facility] Blood type O POSITIVE [facility] Compatibility Compatible [facility] Specimen Performing Organization Address City/[facility]/ZIP [facility] P lauar Number [facility] [place] [address] PATHOLOGY AND GENOMIC MEDICINE [address] * Type and screen (10/08/2019 3:21 PM CDT) ABO grouping O [facility] Rh type POS [facility] Antibody screen NEG [place] (gel) [facility] Specimen Urine Performing Organization Address City/[facility] P laura Number [facility] DEPARTMENT OF [address] [place] [address] PATHOLOGY AND GENOMIC MEDICINE [address] * COVID-19 qualitative PCR (10/08/2019 3:18 PM CDT) Interpretation Negative results do not GARZON preclude 2019-nCoV infection [facility] and should not be used as the HOSPITAL sole basis for treatment or other patient management decisions. Negative results must be combined with clinical observations, patient history, and epidemiological information. COVID-19 Not-Detected Not-Detected [place] qualitative PCR [facility] result HOSPITAL COVID-19 See link below for PDF Lab [place] qualitative PCR ReportComment: Case Number: [facility] [id number] HOSPITAL Specimen Nasopharyngeal swab Performing Organization Address [facility] P laura Number [facility] [place] [address] PATHOLOGY AND GENOMIC MEDICINE [address] * Urine culture (10/08/2019 3:15 PM CDT) Urine culture SEE COMMENTComment: [place] Bacteriuria screen negative. [facility] Specimen Performing Organization Address City/[facility]/ZIP Code P laura Number [facility] DEPARTMENT OF [address] [place] [address] PATHOLOGY AND GENOMIC MEDICINE [address] after 02/04/2019 Insurance Type Payer Benefit Subscriber ID Effective Phone Address Plan / Dates Group HMO [employer] TEX[employer] [id number] 2019-P MCR resent Advance Directives For more information, please contact: [phone] Patient Outpatient Therapist Explanation Type Date Recorded Advance Directives, Living Will and Medical Power of Precinct Captain
[2020-02-05 12:54] LABS: BILIRUBIN,URINE NEGATIVE (NEGATIVE); CLARITY,URINE CLEAR (CLEAR); COLOR,URINE YELLOW (YELLOW); KETONES,URINE NEGATIVE (NEGATIVE); LEUKOCYTE ESTERASE ,URINE NEGATIVE (NEGATIVE); NITRITE,URINE NEGATIVE (NEGATIVE); PROTEIN,URINE DIPSTICK NEGATIVE (NEGATIVE); URINE UROBILINOGEN 0.2 mg/dL (0.2 - 1)
[2020-02-05 13:04] LABS: BACTERIA,URINE RARE /HPF; EPITHELIAL CELLS,URINE RARE /LPF; RBC,URINE 0-5 /HPF (0-5); WBC,URINE (MAN) 0-5 /HPF (0-5)
[2020-02-05 13:26] LABS: BASOPHILS # (AUTO) 0.1 (0.0-0.1); BASOPHILS % 0.8 % (0.0-1.0); EOSINOPHILS # (AUTO) 0.1 (0.0-0.4); EOSINOPHILS % 1.3 % (0.0-6.0); HEMATOCRIT 41.2 % (34.2-44.1); LYMPHOCYTES # (AUTO) 2.7 (1.0-3.2); LYMPHOCYTES % 38.2 % (18.0-39.1); MEAN CORPUSCULAR HEMOGLOBIN 27.7 pg (28-32); MEAN CORPUSCULAR HGB CONC 31.6 g/dL (31-35); MEAN CORPUSCULAR VOLUME 87.8 fL (81-99); MONOCYTES # (AUTO) 0.5 (0.2-0.8); NEUTROPHILS # (AUTO) 3.7 (2.1-6.9); NEUTROPHILS % 52.6 % (38.7-80.0); PLATELET COUNT 340 x10e3/uL (140-360); RED BLOOD COUNT 4.69 x10e6/uL (3.6-5.1); RED CELL DISTRIBUTION WIDTH 14.1 % (11.7-14.4)
[2020-02-05 13:41] LABS: ALBUMIN 3.9 g/dL (3.5-5.0); ALBUMIN/GLOBULIN RATIO 0.9 (0.8-2.0); ANION GAP 15.3 mmol/L (8-16); CALCIUM 9.7 mg/dL (8.4-10.2); CREATININE, SERUM 0.96 mg/dL (0.57-1.11); POTASSIUM 4.3 mmol/L (3.5-5.1)
[2020-02-05 15:33] VITALS: BP 118/74
== END 2020-02-05 15:35 | disposition home or self-care (01) ==
LOC: ER 12:44
DX: Z01.30 Encounter for examination of blood pressure without abnormal findings (principal); E78.5 Hyperlipidemia, unspecified; E03.9 Hypothyroidism, unspecified; K21.9 Gastro-esophageal reflux disease without esophagitis; E78.00 Pure hypercholesterolemia, unspecified; F32.9 Major depressive disorder, single episode, unspecified
CPT/HCPCS: 36415; 80053; 81001; 85025; 99283

== ENCOUNTER 2021-04-09 18:57 | Emergency (ER) | payer MEDICARE ==
[~2021-04-09] VITALS: Ht 167.6 cm; Wt 71.7 kg
[2021-04-09] MEDS ORDERED: SODIUM CHLORIDE 0.9% 500ML 500 ML IV ONE (19:30)
[2021-04-09 20:39] LABS: BASOPHILS # (AUTO) 0.1 (0.0-0.1); BASOPHILS % 0.5 % (0.0-1.0); EOSINOPHILS % 0.3 % (0.0-6.0); HEMATOCRIT 43.9 % (34.2-44.1); HEMOGLOBIN 14.1 g/dL (12.0-16.0); LYMPHOCYTES # (AUTO) 1.8 (1.0-3.2); LYMPHOCYTES % 16.1 % (18.0-39.1); MEAN CORPUSCULAR HEMOGLOBIN 29.1 pg (28-32); MEAN CORPUSCULAR HGB CONC 32.1 g/dL (31-35); MEAN CORPUSCULAR VOLUME 90.7 fL (81-99); MONOCYTES # (AUTO) 0.8 (0.2-0.8); MONOCYTES % 6.9 % (4.4-11.3); NEUTROPHILS # (AUTO) 8.6 (2.1-6.9); NEUTROPHILS % 75.8 % (38.7-80.0); PLATELET COUNT 336 x10e3/uL (140-360); RED BLOOD COUNT 4.84 x10e6/uL (3.6-5.1)
[2021-04-09 20:48] LABS: INR 0.86; PARTIAL THROMBOPLASTIN TIME 24.8 seconds (23.8-35.5); PROTHROMBIN TIME 12.4 seconds (11.9-14.5)
[2021-04-09 20:57] LABS: ALBUMIN 3.6 g/dL (3.5-5.0); ALBUMIN/GLOBULIN RATIO 0.9 (0.8-2.0); ANION GAP 18.2 mmol/L (8-16); CALCIUM 10.4 mg/dL (8.4-10.2); POTASSIUM 4.2 mmol/L (3.5-5.1)
[2021-04-09 21:09] LABS: CREATININE, SERUM 1.38 mg/dL (0.57-1.11)
[2021-04-09 21:36] LABS: CLARITY,URINE CLOUDY (CLEAR); COLOR,URINE AMBER (YELLOW); KETONES,URINE 2+ (NEGATIVE); LEUKOCYTE ESTERASE ,URINE NEGATIVE (NEGATIVE); NITRITE,URINE NEGATIVE (NEGATIVE); PROTEIN,URINE DIPSTICK 2+ (NEGATIVE); URINE UROBILINOGEN 1 mg/dL (0.2 - 1)
[2021-04-09 21:41] LABS: BACTERIA,URINE FEW /HPF; EPITHELIAL CELLS,URINE MANY /LPF; RBC,URINE 0-5 /HPF (0-5)
== END 2021-04-09 22:17 | disposition home or self-care (01) ==
LOC: ER 19:18
DX: R55 Syncope and collapse (principal); E78.5 Hyperlipidemia, unspecified; E03.9 Hypothyroidism, unspecified; K21.9 Gastro-esophageal reflux disease without esophagitis; E78.00 Pure hypercholesterolemia, unspecified; F32.A Depression, unspecified
CPT/HCPCS: 36415; 71045; 80053; 81001; 83880; 85025; 85610; 85730; 99284; J7040; 93005

== ENCOUNTER → 2022-06-02 | Outpatient (CLI) | payer OTHER, MEDICARE | LOC: CARD 09:34 | PROVIDERS: ATTEND Podiatrist Foot & Ankle Surgery | DX: G57.92 Unspecified mononeuropathy of left lower limb (principal); G57.91 Unspecified mononeuropathy of right lower limb | CPT/HCPCS: 93925 ==

== ENCOUNTER 2023-12-12 10:47 | Emergency (ER) | payer OTHER, MEDICARE ==
[~2023-12-12] VITALS: Ht 167.6 cm; Wt 77.6 kg
[2023-12-12 11:13] VITALS: TEMP 97.8
[2023-12-12 14:43] LABS: BASOPHILS # (AUTO) 0.1 (0.0-0.1); BASOPHILS % 0.8 % (0.0-1.0); EOSINOPHILS # (AUTO) 0.2 (0.0-0.4); EOSINOPHILS % 2.1 % (0.0-6.0); HEMOGLOBIN 12.1 g/dL (12.0-16.0); LYMPHOCYTES # (AUTO) 2.3 (1.0-3.2); LYMPHOCYTES % 30.9 % (18.0-39.1); MEAN CORPUSCULAR HEMOGLOBIN 30.6 pg (28-32); MEAN CORPUSCULAR HGB CONC 32.7 g/dL (31-35); MEAN CORPUSCULAR VOLUME 93.7 fL (81-99); MONOCYTES # (AUTO) 0.5 (0.2-0.8); MONOCYTES % 6.5 % (4.4-11.3); NEUTROPHILS # (AUTO) 4.5 (2.1-6.9); NEUTROPHILS % 59.6 % (38.7-80.0); PLATELET COUNT 281 x10e3/uL (140-360); RED BLOOD COUNT 3.95 x10e6/uL (3.6-5.1); RED CELL DISTRIBUTION WIDTH 13.2 % (11.7-14.4); WHITE BLOOD COUNT 7.57 x10e3/uL (4.8-10.8)
[2023-12-12 15:42] LABS: ALBUMIN 3.6 g/dL (3.5-5.0); ALBUMIN/GLOBULIN RATIO 1.1 (0.8-2.0); ANION GAP 15.6 mmol/L (8-16); BILIRUBIN,TOTAL 0.6 mg/dL (0.2-1.2); CALCIUM 9.6 mg/dL (8.4-10.2); CREATININE, SERUM 1.13 mg/dL (0.57-1.11); POTASSIUM 4.6 mmol/L (3.5-5.1)
[2023-12-12 17:09] LABS: BILIRUBIN,URINE NEGATIVE (NEGATIVE); CLARITY,URINE CLEAR (CLEAR); COLOR,URINE YELLOW (YELLOW); GLUCOSE, URINE NEGATIVE (NEGATIVE); KETONES,URINE NEGATIVE (NEGATIVE); LEUKOCYTE ESTERASE ,URINE NEGATIVE (NEGATIVE); NITRITE,URINE NEGATIVE (NEGATIVE); PH,URINE 7 (5 - 7); PROTEIN,URINE DIPSTICK NEGATIVE (NEGATIVE); URINE UROBILINOGEN 0.2 mg/dL (0.2 - 1)
[2023-12-12 17:12] LABS: BACTERIA,URINE RARE /HPF; EPITHELIAL CELLS,URINE RARE /LPF; RBC,URINE 0-5 /HPF (0-5); WBC,URINE (MAN) 0-5 /HPF (0-5)
[2023-12-12 18:00] VITALS: RESP 18
[2023-12-12 18:02] VITALS: PULSE 63
[2023-12-12 18:05] VITALS: BP 126/74; PULSE 63; RESP 18; O2SAT 96
[2023-12-12] MEDS ORDERED: METHOCARBAMOL500 MG PO (18:19)
== END 2023-12-12 18:05 | disposition home or self-care (01) ==
LOC: ER 11:16
DX: M54.9 Dorsalgia, unspecified (principal); I71.40 Abdominal aortic aneurysm, without rupture, unspecified; E78.5 Hyperlipidemia, unspecified; E03.9 Hypothyroidism, unspecified; E78.00 Pure hypercholesterolemia, unspecified; K21.9 Gastro-esophageal reflux disease without esophagitis; F17.210 Nicotine dependence, cigarettes, uncomplicated
CPT/HCPCS: 36415; 74176; 80053; 81001; 85025; 99284

== ENCOUNTER → 2024-10-29 | Outpatient (REF) | payer OTHER, MEDICARE ==
[~2024-10-29] MED LIST changes: +METHOCARBAMOL500 MG PO
== END ==
LOC: CT 12:30
PROVIDERS: ATTEND Internal Medicine Pulmonary Disease
DX: R91.1 Solitary pulmonary nodule (principal)
CPT/HCPCS: 71250